=== PATIENT | female | born 1930 | race Caucasian/White ===

== ENCOUNTER 2017-10-17 13:07 | Observation (INO) | payer MEDICARE, OTHER ==
[~2017-10-17] VITALS: Ht 144.8 cm; Wt 40.8 kg
[2017-10-17 10:00] VITALS: BP 140/72
[~2017-10-17 13:07] MED LIST: ASPIRIN CHEW81 MG PO; ATIVAN1 MG PO; BISACODYL5 MG PO; CARBIDOPA-LEVO1 EACH PO; DOCUSATE SODIU100 MG PO; FUROSEMIDE40 MG PO; MULTI-VITAMIN1 EACH PO; NORCO 10-325 T1 EACH PO; NORCO 10MG-325MG1 EA PO; NORCO 5-325 TA1 EACH PO; PANTOPRAZOLE SO40 MG PO; SENNA LAXATIVE1 EACH PO; SERTRALINE HCL25 MG PO; TAMOXIFEN CITRA10 MG PO; ULTRAM 50MG50 MG PO; ULTRAM50 MG PO; WELLBUTRIN SR150 MG PO; ZOFRAN ODT4 MG
[2017-10-17 14:11] LABS: BASOPHILS % 0.4 % (0.0-1.0); EOSINOPHILS # (AUTO) 0.3 (0.0-0.4); HEMATOCRIT 37.4 % (34.2-44.1); HEMOGLOBIN 12.5 g/dL (12.0-16.0); LYMPHOCYTES # (AUTO) 2.6 (1.0-3.2); LYMPHOCYTES % 32.9 % (18.0-39.1); MEAN CORPUSCULAR HEMOGLOBIN 32.3 pg (28-32); MEAN CORPUSCULAR HGB CONC 33.4 g/dL (31-35); MEAN CORPUSCULAR VOLUME 96.6 fL (81-99); MONOCYTES # (AUTO) 0.7 (0.2-0.8); MONOCYTES % 8.6 % (4.4-11.3); NEUTROPHILS # (AUTO) 4.2 (2.1-6.9); NEUTROPHILS % 53.8 % (38.7-80.0); PLATELET COUNT 229 x10e3/uL (140-360); RED BLOOD COUNT 3.87 x10e6/uL (3.6-5.1); RED CELL DISTRIBUTION WIDTH 14.2 % (11.7-14.4)
[2017-10-17 14:25] LABS: ALANINE AMINOTRANSFERASE 12 IU/L (0-55); ALBUMIN 3.7 g/dL (3.5-5.0); ALKALINE PHOSPHATASE 68 IU/L (40-150); ANION GAP 13.2 mmol/L (8-16); BLOOD UREA NITROGEN 19 mg/dL (7-26); BUN/CREATININE RATIO 28 (6-25); CARBON DIOXIDE 27 mmol/L (22-29); CHLORIDE 104 mmol/L (98-107); CREATINE KINASE 38 IU/L (29-168); CREATININE, SERUM 0.69 mg/dL (0.57-1.11); EST GLOMERULAR FILTRATION RATE > 60 ML/MIN (60-); GLUCOSE 101 mg/dL (74-118); POTASSIUM 4.2 mmol/L (3.5-5.1); SODIUM 140 mmol/L (136-145)
--- NOTE | 2017-10-17 14:49 | Diagnostic Imaging Report ---
Exam: Head CT without contrast History: Altered mental status, weakness Comparison studies: Head CTs of 04/07/2016 12/22/2015. Technique: Axial images were obtained from the skull base to the vertex. Coronal and sagittal images reconstructed from the axial data. Intravenous contrast: None Findings: Scalp: No abnormalities. Bones: No fractures, blastic or lytic lesions. Brain sulci: Moderately prominent. Ventricles: Normal in size and configuration. No hydrocephalus. Extra-axial spaces: No masses, no fluid collection. Parenchyma: Mass, acute hemorrhage or acute cortical vascular insults. Hypodensities in the supratentorial white matter are nonspecific but most compatible with chronic small vessel ischemic changes. 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 Sellar/suprasellar region: No abnormalities. Craniocervical junction: Patent foramen magnum. No Chiari one malformation. Incidental findings: Atherosclerotic calcifications in the carotid siphons.. Degenerative changes at the temporal mandibular joints. Bilateral intraocular lens replacements related to previous cataract surgery. IMPRESSION: No acute intracranial abnormalities. No changes from the previous head CT of 03/28/2016. Chronic findings: 1. Moderate generalized volume loss. 2. Mild chronic microvascular ischemic changes. 3. 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 Signed by: Dr. Bob Vasquez M.D. on 10/17/2017 2:45 PM
--- NOTE | 2017-10-17 14:59 | Diagnostic Imaging Report ---
PROCEDURE: A single AP view of the chest. COMPARISON: Patients [facility], , CHEST SINGLE (PORTABLE), 03/28/2016, 16:25. INDICATIONS: WEAKNESS, AMS FINDINGS: Lines/tubes: None. Lungs: The lungs are well inflated and grossly clear. There is no evidence of pneumonia or pulmonary edema. Pleura: There is no pleural effusion or pneumothorax. Heart and mediastinum: The heart and the mediastinum are unremarkable. Atherosclerotic calcification of the thoracic aorta. Bones: No acute bony abnormality. Chronic fracture deformity of the right clavicle. Degenerative changes in the thoracic spine. IMPRESSION: 1. No acute cardiopulmonary disease. Shabbir Gage M.D. Dictated by: Shabbir Gage M.D. on 10/17/2017 at 15:02 Electronically approved by: Shabbir Gage M.D. on 10/17/2017 at 15:02
[2017-10-17 15:13] LABS: BILIRUBIN,URINE NEGATIVE (NEGATIVE); CLARITY,URINE CLOUDY (CLEAR); COLOR,URINE YELLOW (YELLOW); KETONES,URINE NEGATIVE (NEGATIVE); LEUKOCYTE ESTERASE ,URINE TRACE (NEGATIVE); NITRITE,URINE NEGATIVE (NEGATIVE); PROTEIN,URINE DIPSTICK NEGATIVE (NEGATIVE); URINE UROBILINOGEN 0.2 mg/dL (0.2 - 1)
[2017-10-17 15:27] LABS: BACTERIA,URINE RARE /HPF; EPITHELIAL CELLS,URINE FEW /LPF
[2017-10-17 16:03] LABS: AMPHETAMINES SCREEN,URINE NEGATIVE (NEGATIVE); BENZODIAZEPINES SCREEN,URINE NEGATIVE (NEGATIVE); PHENCYCLIDINE SCREEN,URINE NEGATIVE (NEGATIVE)
[2017-10-17] MEDS ORDERED: KETOROLAC TROMETHAMINE 30 MG/ML VIAL IV STA (16:27)
--- NOTE | 2017-10-17 17:57 | Diagnostic Imaging Report ---
PROCEDURE: CT ABDOMEN AND PELVIS WITH CONTRAST TECHNIQUE: The abdomen and pelvis were scanned utilizing a multidetector helical scanner from the diaphragm to the lesser trochanter after the IV administration of 100 cc of Isovue 370 and the oral administration of water. Coronal and sagittal multiplanar reformations were obtained. COMPARISON: None. INDICATIONS: BACK PAIN, possible sepsis FINDINGS: LOWER THORAX: Linear opacities in bilateral lower lobes, likely represent subsegmental atelectasis or scarring. HEPATOBILIARY: No focal hepatic lesions. No biliary ductal dilatation. Gallbladder is unremarkable. SPLEEN: No splenomegaly. PANCREAS: No focal masses or ductal dilatation. ADRENALS: No adrenal nodules. KIDNEYS/URETERS: No hydronephrosis, stones, or solid mass lesions. PELVIC ORGANS/BLADDER: The evaluation of the pelvis is limited by beam hardening artifact from right hip prosthesis. Visualized portions of the bladder and uterus are unremarkable. No focal lesions. No adnexal masses. PERITONEUM / RETROPERITONEUM: No free air or fluid. LYMPH NODES: No lymphadenopathy. VESSELS: Celiac trunk, superior and inferior mesenteric, and bilateral renal arteries are patent. Portal, superior mesenteric, and splenic veins are patent. Atherosclerotic calcification of the distal abdominal aorta. Aorta is not aneurysmal. GI TRACT: No bowel dilation or evidence of obstruction. Moderate amount of retained stool in the colon, predominantly in the distal transverse, descending, and sigmoid. No wall thickening. BONES AND SOFT TISSUES: Moderate generalized osteopenia. No aggressive lytic lesions. Chronic compression fractures of the L1, L2, and L3, with vertebroplasty changes at L2 and L3. Anterior wedging of the T11 vertebral body. Old healed fracture of the left inferior and superior pubic rami. Right total hip replacement, with intact hardware in satisfactory position. IMPRESSION: 1. no acute abdominopelvic abnormalities. No bowel dilation or evidence of obstruction. 2. Moderate amount of retained stool in the colon, predominantly in the distal transverse, descending, and sigmoid colon, which may reflect constipation. 3. Bilateral lower lobe subsegmental atelectasis or scarring. 4. Chronic compression fractures of the L1, L2, and L3 vertebral bodies, with vertebroplasty changes at L2 and L3. Anterior wedging of the T11 vertebral body, consistent with an age-indeterminate compression deformity. Shabbir Gage M.D. Dictated by: Shabbir Gage M.D. on 10/17/2017 at 17:59 Electronically approved by: Shabbir Gage M.D. on 10/17/2017 at 17:59
[2017-10-17] MEDS ORDERED: SODIUM CHLORIDE 0.9% 1000ML 1,000 ML IV SCH (19:39)
[2017-10-17] MEDS ORDERED: ONDANSETRON HCL INJ 2 MG/ML VIAL IV PRN (19:45)
[2017-10-17] MEDS ORDERED: ONDANSETRON HCL 4 MG ORAL DISINTEGRATING TAB PO PRN (20:00)
--- OUTSIDE RECORDS SUMMARY | 2017-10-17 20:08 | XMS REPORT ---
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 Allergies, Adverse Reactions, Alerts This patient has no known allergies or adverse reactions. Medications This patient has no known medications. Results Test Description Test Time Test Comments Text Results Atomic Results Result Comments CT ABDOMEN/PELVIS W [place] [address] Patient Name: JAYY LAYNE MR #: [id number] : 1930 Age/Sex: 87/F Req #: [id number] Adm Physician: Ordered by: JOAN VICTOR MD Report #: [id number] Location: ER Room/Bed: Procedure: [id number] CT/CT ABDOMEN/PELVIS W Exam Date: 10/17/17 Exam Time: 1710 REPORT STATUS: Signed PROCEDURE: CT ABDOMEN AND PELVIS WITH CONTRAST TECHNIQUE: The abdomen and pelvis were scanned utilizing a multidetector helical scanner from the diaphragm to the lesser trochanter after the IV administration of 100 cc of Isovue 370 and the oral administration of water. Coronal and sagittal multiplanar reformations were obtained. COMPARISON: None. INDICATIONS: BACK PAIN, possible sepsis FINDINGS: LOWER THORAX: Linear opacities in bilateral lower lobes, likely represent subsegmental atelectasis or scarring. HEPATOBILIARY: No focal hepatic lesions. No biliary ductal dilatation. Gallbladder is unremarkable. SPLEEN: No splenomegaly. PANCREAS: No focal masses or ductal dilatation. ADRENALS: No adrenal nodules. KIDNEYS/URETERS: No hydronephrosis, stones, or solid mass lesions. PELVIC ORGANS/BLADDER: The evaluation of the pelvis is limited by beam hardening artifact from right hip prosthesis. Visualized portions of the bladder and uterus are unremarkable. No focal lesions. No adnexal masses. PERITONEUM / RETROPERITONEUM: No free air or fluid. LYMPH NODES: No lymphadenopathy. VESSELS: Celiac trunk, superior and inferior mesenteric, and bilateral renal arteries are patent. Portal, superior mesenteric, and splenic veins are patent. Atherosclerotic calcification of the distal abdominal aorta. Aorta is not aneurysmal. GI TRACT: No bowel dilation or evidence of obstruction. Moderate amount of retained stool in the colon, predominantly in the distal transverse, descending, and sigmoid. No wall thickening. BONES AND SOFT TISSUES: Moderate generalized osteopenia. No aggressive lytic lesions. Chronic compression fractures of the L1, L2, and L3 , with vertebroplasty changes at L2 and L3. Anterior wedging of the T11 vertebral body. Old healed fracture of the left inferior and superior pubic rami. Right total hip replacement, with intact hardware in satisfactory position. IMPRESSION: 1. no acute abdominopelvic abnormalities. No bowel dilation or evidence of obstruction. 2. Moderate amount of retained stool in the colon, predominantly in the distal transverse, descending, and sigmoid colon, which may reflect constipation. 3. Bilateral lower lobe subsegmental atelectasis or scarring. 4. Chronic compression fractures of the L1, L2, and L3 vertebral bodies, with vertebroplasty changes at L2 and L3. Anterior wedging of the T11 vertebral body, consistent with an age- indeterminate compression deformity. Franklin Gage M.D. Dictated by: Franklin Gage M.D. on 10/17/2017 at 17:59 Electronically approved by: Franklin Gage M.D. on 10/17/2017 at 17:59 Dictated By: FRANKLIN GAGE MD 58 Transcribed By: BRUNA on 10/17/171758 COPY TO: JOAN VICTOR [place] [place] [address] Patient Name: JAYY LAYNE MR #: [id number] : 1930 Age/Sex: 87/F Req # : [id number] Adm Physician: Ordered by: JOAN VICTOR MD Report #: [id number] Location: ER Room/Bed: Procedure: [id number] CT/CT BRAIN WO Exam Date: 10/17/17 Exam Time: 1400 REPORT STATUS: Signed Exam: Head CT without contrast History: Altered mental status, weakness Comparison studies: Head CTs of 04/07/201612/22/2015. Technique: Axial images were obtained from the skull base to the vertex. Coronal and sagittal images reconstructed from the axial data. Intravenous contrast: None Findings: Scalp: No abnormalities. Bones : No fractures, blastic or lytic lesions. Brain sulci: Moderately prominent. Ventricles: Normal in size and configuration. No hydrocephalus. Extra-axial spaces: No masses, no fluid collection. Parenchyma: Mass, acute hemorrhage or acute cortical vascular insults. Hypodensities in the supratentorial white matter are nonspecific but most compatible with chronic small vessel ischemic changes. 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 Sellar/suprasellar region: No abnormalities. Craniocervical junction: Patent foramen magnum. No Chiari one malformation. Incidental findings: Atherosclerotic calcifications in the carotid siphons.. Degenerative changes at the temporal mandibular joints. Bilateral intraocular lens replacements related to previous cataract surgery. IMPRESSION: No acute intracranial abnormalities. No changes from the previous head CT of 2015. Chronic findings: 1. Moderate generalized volume loss. 2. Mild chronic microvascular ischemic changes. 3. 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 Signed by: Dr. Amy Vasquez M.D. on 10/17/2017 2:45 PM Dictated By: AMY VASQUEZ MD 144 Transcribed By: VALENTINE on 10/17 1442 COPY TO: JOAN VICTOR MD CHEST SINGLE (PORTABLE) [place] [address] Patient Name: JAYY LAYNE MR #: [id number] : 1930 Age/Sex: 87/F Req #: [id number] Adm Physician: Ordered by: JOAN VICTOR MD Report #: [id number] Location: ER Room/Bed: Procedure: [id number] DX/CHEST SINGLE (PORTABLE) Exam Date: 10/17/17 Exam Time: 1400 REPORT STATUS: Signed PROCEDURE: A single AP view of the chest. COMPARISON: [facility], DX, CHEST SINGLE (PORTABLE), 03/28/2016, 16:25. INDICATIONS: WEAKNESS, AMS FINDINGS: Lines/tubes: None. Lungs: The lungs are well inflated and grossly clear. There is no evidence of pneumonia or pulmonary edema. Pleura: There is no pleural effusion or pneumothorax. Heart and mediastinum: The heart and the mediastinum are unremarkable. Atherosclerotic calcification of the thoracic aorta. Bones: No acute bony abnormality. Chronic fracture deformity of the right clavicle. Degenerative changes in the thoracic spine. IMPRESSION: 1. No acute cardiopulmonary disease. Franklin Gage M.D. Dictated by : Franklin Gage M.D. on 10/17/2017 at 15:02 Electronically approved by: Franklin Gage M.D. on 10/17/2017 at 15:02 Dictated By : FRANKLIN GAGE MD 1502 Transcribed By: BRUNA on 10/17/17 1502 COPY TO: JOAN VICTOR MD
[2017-10-17] MEDS: CEFTRIAXONE SOD 1 GM VIAL IV SCH (20:09)
[2017-10-17] MEDS ORDERED: IOPAMIDOL 370 MG/ML 200 ML INFUS..BTL INJ ONE (20:40)
[2017-10-17] MEDS ORDERED: SODIUM CHLORIDE 0.9% 50ML 50 ML ONE (20:40)
[2017-10-17] MEDS ORDERED: GABAPENTIN300 MG PO (22:58)
[2017-10-17] MEDS ORDERED: METOPROLOL TART25 MG PO (22:59)
[2017-10-17] MEDS ORDERED: LASIX20 MG PO (23:00)
[2017-10-17] MEDS ORDERED: ONDANSETRON HCL 4 MG ORAL DISINTEGRATING TAB SL PRN (23:15)
[2017-10-17] MEDS ORDERED: HYDROCODONE/APAP 10MG-325MG TAB PO PRN (23:15)
[2017-10-17] MEDS ORDERED: LORAZEPAM 1 MG TAB PO PRN (23:15)
[2017-10-18 01:06] VITALS: BP 145/80
[2017-10-18 05:38] VITALS: BP 129/92
[2017-10-18 08:00] VITALS: BP 154/87
[2017-10-18] MEDS: CEFTRIAXONE SOD 1 GM VIAL IV SCH (08:00)
[2017-10-18] MEDS ORDERED: METOPROLOL TARTRATE 25 MG TAB PO SCH (09:00)
[2017-10-18] MEDS ORDERED: SERTRALINE HCL 50 MG TAB PO SCH (09:00)
[2017-10-18] MEDS ORDERED: GABAPENTIN 300 MG CAP PO SCH (09:00)
[2017-10-18] MEDS ORDERED: FUROSEMIDE 20 MG TAB PO SCH (11:00)
[2017-10-18 12:00] VITALS: BP 149/71
== END 2017-10-18 16:54 | disposition home or self-care (01) ==
LOC: ER 13:07 → ERHOLD 19:39 → MED/SURG2 23:06
PROVIDERS: ADMIT Internal Medicine; ATTEND Internal Medicine
DX: N39.0 Urinary tract infection, site not specified (principal); R44.3 Hallucinations, unspecified; Z86.73 Personal history of transient ischemic attack (TIA), and cerebral infarction without residual deficits; K59.00 Constipation, unspecified; I48.0 Paroxysmal atrial fibrillation
CPT/HCPCS: 36415; 70450; 71045; 74177; 80053; 80307; 81001; 82550; 82553; 83605; 84484; 85025; 87086; 93005; 99284; G0378 ×2; J0696 ×2; J1885; J7030 ×2; Q9967

== ENCOUNTER 2018-03-12 17:58 | Emergency (ER) | payer MEDICARE ==
[~2018-03-12] VITALS: Ht 144.8 cm; Wt 40.8 kg
[~2018-03-12 17:58] MED LIST changes: +GABAPENTIN300 MG PO; +LASIX20 MG PO; +METOPROLOL TART25 MG PO
[2018-03-12] MEDS ORDERED: SODIUM CHLORIDE 0.9% 1000ML 1,000 ML IV STA (19:04)
[2018-03-12 19:13] LABS: BASOPHILS % 0.2 % (0.0-1.0); EOSINOPHILS # (AUTO) 0.1 (0.0-0.4); EOSINOPHILS % 1.2 % (0.0-6.0); HEMATOCRIT 38.3 % (34.2-44.1); HEMOGLOBIN 12.8 g/dL (12.0-16.0); LYMPHOCYTES # (AUTO) 3.3 (1.0-3.2); MEAN CORPUSCULAR HEMOGLOBIN 32.5 pg (28-32); MEAN CORPUSCULAR HGB CONC 33.4 g/dL (31-35); MEAN CORPUSCULAR VOLUME 97.2 fL (81-99); MONOCYTES # (AUTO) 0.7 (0.2-0.8); MONOCYTES % 6.7 % (4.4-11.3); NEUTROPHILS # (AUTO) 5.9 (2.1-6.9); NEUTROPHILS % 58.7 % (38.7-80.0); PLATELET COUNT 200 x10e3/uL (140-360); RED BLOOD COUNT 3.94 x10e6/uL (3.6-5.1); RED CELL DISTRIBUTION WIDTH 13.6 % (11.7-14.4)
[2018-03-12 19:24] LABS: INR 0.89; PROTHROMBIN TIME 12.9 seconds (11.9-14.5)
[2018-03-12 19:25] LABS: PARTIAL THROMBOPLASTIN TIME 27.1 seconds (23.8-35.5)
[2018-03-12 19:32] LABS: ALANINE AMINOTRANSFERASE 11 IU/L (0-55); ALBUMIN 3.6 g/dL (3.5-5.0); ALKALINE PHOSPHATASE 67 IU/L (40-150); AMYLASE 49 U/L (25-125); ANION GAP 19.4 mmol/L (8-16); BLOOD UREA NITROGEN 18 mg/dL (7-26); BUN/CREATININE RATIO 22 (6-25); CARBON DIOXIDE 23 mmol/L (22-29); CHLORIDE 100 mmol/L (98-107); CREATINE KINASE 34 IU/L (29-168); CREATININE, SERUM 0.83 mg/dL (0.57-1.11); EST GLOMERULAR FILTRATION RATE > 60 ML/MIN (60-); GLUCOSE 98 mg/dL (74-118); LIPASE 5 U/L (8-78); POTASSIUM 4.4 mmol/L (3.5-5.1); SODIUM 138 mmol/L (136-145)
--- NOTE | 2018-03-12 20:40 | Diagnostic Imaging Report ---
EXAMINATION: CHEST SINGLE (PORTABLE) INDICATION: Congestion. COMPARISON: 01/24/2016. FINDINGS: TUBES and LINES: None. LUNGS: Bilateral chronic interstitial changes with bronchiectasis, particularly on the left. Mild bilateral perihilar Thickening. There is no evidence of pneumonia or pulmonary edema. PLEURA: No pleural effusion or pneumothorax. HEART AND MEDIASTINUM: The cardiomediastinal silhouette is unremarkable. BONES AND SOFT TISSUES: No acute osseous lesion. Surgical clips again projected on the left lower quadrant laterally. Remote displaced fracture of the right clavicle. UPPER ABDOMEN: No free air under the diaphragm. IMPRESSION: Mild bilateral perihilar, peribronchial thickening may reflect a very infection versus reactive airway disease. No focal consolidation. Signed by: Dr. Wil Thacker M.D. on 03/12/2018 8:37 PM
--- NOTE | 2018-03-12 20:50 | Diagnostic Imaging Report ---
EXAM: CT Abdomen and Pelvis WITH contrast INDICATION: Bilateral lower quadrant abdominal pain. COMPARISON: None. TECHNIQUE: Abdomen and pelvis were scanned utilizing a multidetector helical scanner from the lung base to the pubic symphysis after administration of IV contrast. Coronal and sagittal reformations were obtained. Routine protocol was performed. Scan was performed when during portal venous phase. IV CONTRAST: 150 mL of Omnipaque 300 ORAL CONTRAST: Water RADIATION DOSE: Total DLP: ... mGy*cm Estimated effective dose: (DLP x 0.015 x size factor) mSv COMPLICATIONS: None FINDINGS: LINES and TUBES: None. LOWER THORAX: Anterior left lower lobe pleural parenchymal scarring, possibly post radiation change. HEPATOBILIARY: No focal hepatic lesions. No biliary ductal dilation. GALLBLADDER: No radio-opaque stones or sludge. No wall thickening. SPLEEN: No splenomegaly. PANCREAS: Diffusely atrophic. No focal masses or ductal dilatation. ADRENALS: No adrenal nodules KIDNEYS/URETERS: Kidneys enhance symmetrically. No hydronephrosis. No cystic or solid mass lesions. No stones. GI TRACT: No abnormal distention, wall thickening, or evidence of bowel obstruction. Fluid attenuation throughout the ascending colon is nonspecific. Appendix is normal. PELVIC ORGANS/BLADDER: Unremarkable. LYMPH NODES: No lymphadenopathy. VESSELS: There is moderate atherosclerotic disease in the aorta and major arterial branches. Tortuous aorta. PERITONEUM / RETROPERITONEUM: No free air or fluid. BONES: Right hip prosthesis. Remote left inferior pubic ramus fracture. Compression fractures of L2 and L3 status post kyphoplasty. Compression fracture of L1 and T11. Generalized osteopenia. Degenerative disc disease at L5-S1. SOFT TISSUES: Unremarkable. IMPRESSION: 1. No acute abdominal pelvic abnormality. Unremarkable appendix. Signed by: Dr. Wil Thacker M.D. on 03/12/2018 8:47 PM
[2018-03-12 22:12] LABS: COLOR,URINE YELLOW (YELLOW)
[2018-03-12 22:13] LABS: BILIRUBIN,URINE NEGATIVE (NEGATIVE); CLARITY,URINE HAZY (CLEAR); KETONES,URINE TRACE (NEGATIVE); LEUKOCYTE ESTERASE ,URINE 1+ (NEGATIVE); NITRITE,URINE NEGATIVE (NEGATIVE); PROTEIN,URINE DIPSTICK NEGATIVE (NEGATIVE); URINE UROBILINOGEN 0.2 mg/dL (0.2 - 1)
--- NOTE | 2018-03-12 22:13 | Diagnostic Imaging Report ---
EXAMINATION: Head CT without contrast. HISTORY:Altered mental status, hallucination. COMPARISON:CT brain from 10/17/2017. TECHNIQUE: Multidetector axial images were obtained from the foramen magnum to the vertex without contrast. The images were reconstructed using brain and bone algorithms. Thin section brain images were reformatted into coronal and sagittal planes. Dose modulation, iterative reconstruction, and/or weight based adjustment of the mA/kV was utilized to reduce the radiation dose to as low as reasonably achievable. Intravenous contrast: None IMAGE QUALITY: Acceptable. FINDINGS: Skull/scalp: No lytic or blastic. lesions. No surgical changes. Parenchyma: Nonspecific supratentorial white matter patchy hypodensity are likely related to small vessel ischemic changes. Unchanged subtle increased density in the right lentiform nucleus with mildly prominent vessels possibly represents developmental venous anomaly with or without associated cavernoma. No acute hemorrhage, mass or acute major vascular territorial infarct Arteries: Mild atherosclerotic calcification in bilateral carotid siphon. Dural sinuses: No abnormal density suggestive of thrombosis. Ventricles: Moderate compensated dilatation due to volume loss. Extra-axial spaces: No abnormal density. Brain volume: Generalized age-related cerebral volume loss. Craniocervical junction: No mass, Chiari malformation, or basilar invagination. Sella: No mass. Paranasal/mastoid sinuses: Imaged portions unremarkable. IMPRESSION: No acute intracranial abnormality. No change since CT brain from 10/17/2017. Chronic findings: 1. Generalized age-related cerebral volume loss. 2. Mild supratentorial white matter microvascular ischemic changes. 3. 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 Signed by: Dr. Jacy Escalera M.D. on 03/12/2018 10:09 PM
[2018-03-12 22:20] LABS: BACTERIA,URINE FEW /HPF; EPITHELIAL CELLS,URINE FEW /LPF
[2018-03-12] MEDS ORDERED: CEFTRIAXONE SOD 1 GM VIAL IV ONE ×2 (22:45→23:45)
[2018-03-13 00:19] VITALS: BP 131/80
[2018-03-13] MEDS ORDERED: SODIUM CHLORIDE 0.9% 50ML 50 ML ONE (07:16)
[2018-03-13] MEDS ORDERED: IOPAMIDOL 370 MG/ML 200 ML INFUS..BTL INJ ONE (07:16)
== END 2018-03-13 01:08 | disposition home or self-care (01) ==
LOC: ER 17:58
DX: R41.0 Disorientation, unspecified (principal); N39.0 Urinary tract infection, site not specified; N30.91 Cystitis, unspecified with hematuria; J20.9 Acute bronchitis, unspecified; R26.2 Difficulty in walking, not elsewhere classified; J44.9 Chronic obstructive pulmonary disease, unspecified; F32.9 Major depressive disorder, single episode, unspecified; Z85.3 Personal history of malignant neoplasm of breast; Z95.5 Presence of coronary angioplasty implant and graft; Z87.891 Personal history of nicotine dependence
CPT/HCPCS: 36415; 70450; 71045; 74177; 80053; 81001; 82150; 82550; 82553; 83605; 83690; 84484; 85025; 85610; 85730; 87040; 87086; 87400; 93005; 99284; J0696; J7030; Q9967

== ENCOUNTER 2018-08-24 19:07 | Inpatient (IN) | payer MEDICARE ==
[~2018-08-24] VITALS: Ht 142.2 cm; Wt 49.4 kg
[2018-08-24] MEDS ORDERED: CEFTRIAXONE SOD 1 GM/NS 50 ML 50 ML IV ONE (19:45)
[2018-08-24] MEDS ORDERED: SODIUM CHLORIDE 0.9% 1000ML 1,000 ML IV ONE (19:45)
[2018-08-24] MEDS ORDERED: ACETAMINOPHEN 1000 MG/100 ML IV ONE (19:45)
[2018-08-24 20:52] LABS: INFLUENZAE A&B ANTIGEN (RAPID) NEGATIVE (NEGATIVE)
[2018-08-24 20:59] LABS: BASOPHILS % 0.2 % (0.0-1.0); EOSINOPHILS # (AUTO) 0.1 (0.0-0.4); HEMATOCRIT 33.4 % (34.2-44.1); HEMOGLOBIN 11.2 g/dL (12.0-16.0); LYMPHOCYTES % 39.5 % (18.0-39.1); MEAN CORPUSCULAR HEMOGLOBIN 33.3 pg (28-32); MEAN CORPUSCULAR HGB CONC 33.5 g/dL (31-35); MEAN CORPUSCULAR VOLUME 99.4 fL (81-99); MONOCYTES # (AUTO) 0.8 (0.2-0.8); MONOCYTES % 7.4 % (4.4-11.3); NEUTROPHILS # (AUTO) 5.3 (2.1-6.9); NEUTROPHILS % 51.7 % (38.7-80.0); PLATELET COUNT 182 x10e3/uL (140-360); RED BLOOD COUNT 3.36 x10e6/uL (3.6-5.1); RED CELL DISTRIBUTION WIDTH 13.7 % (11.7-14.4)
[2018-08-24 21:16] LABS: ALANINE AMINOTRANSFERASE 7 IU/L (0-55); ALBUMIN 2.9 g/dL (3.5-5.0); ALKALINE PHOSPHATASE 54 IU/L (40-150); ANION GAP 12.4 mmol/L (8-16); BLOOD UREA NITROGEN 11 mg/dL (7-26); BUN/CREATININE RATIO 17 (6-25); CALCIUM 8.5 mg/dL (8.4-10.2); CARBON DIOXIDE 22 mmol/L (22-29); CHLORIDE 105 mmol/L (98-107); CREATININE, SERUM 0.63 mg/dL (0.57-1.11); EST GLOMERULAR FILTRATION RATE > 60 ML/MIN (60-); GLUCOSE 113 mg/dL (74-118); POTASSIUM 3.4 mmol/L (3.5-5.1); SODIUM 136 mmol/L (136-145)
[2018-08-24 21:17] LABS: PLATELET ESTIMATE ADEQUATE; PLATELET MORPHOLOGY COMMENT NORMAL; RBC MORPHOLOGY COMMENT NORMAL
--- NOTE | 2018-08-24 21:17 | Diagnostic Imaging Report ---
EXAMINATION: CHEST SINGLE (PORTABLE) INDICATION: Fever. Lethargic. Cough. COMPARISON: 03/12/2018. FINDINGS: TUBES and LINES: None. LUNGS: Bilateral chronic interstitial changes with bronchiectasis, particularly on the left. Mild bilateral perihilar thickening. There is no evidence of pneumonia or pulmonary edema. PLEURA: No pleural effusion or pneumothorax. Blunting of the left lateral calcific sulcus is unchanged. HEART AND MEDIASTINUM: The cardiomediastinal silhouette is unremarkable. Mild prominence of the central pulmonary arteries bilaterally. Tortuous thoracic aorta. BONES AND SOFT TISSUES: No acute osseous lesion. Surgical clips again projected on the left lower quadrant laterally. Remote displaced fracture of the right clavicle. Status post lumbar kyphoplasty partially visualized. UPPER ABDOMEN: No free air under the diaphragm. IMPRESSION: Mild bilateral perihilar, peribronchial thickening may reflect a very infection versus reactive airway disease. No focal consolidation. Signed by: Dr. Wil Thacker M.D. on 08/24/2018 9:14 PM
[2018-08-24 22:08] LABS: CLARITY,URINE CLEAR (CLEAR); COLOR,URINE YELLOW (YELLOW)
[2018-08-24 22:09] LABS: BILIRUBIN,URINE NEGATIVE (NEGATIVE); KETONES,URINE 1+ (NEGATIVE); LEUKOCYTE ESTERASE ,URINE NEGATIVE (NEGATIVE); NITRITE,URINE NEGATIVE (NEGATIVE); PROTEIN,URINE DIPSTICK TRACE (NEGATIVE); URINE UROBILINOGEN 0.2 mg/dL (0.2 - 1)
[2018-08-24 22:28] LABS: BACTERIA,URINE MODERATE /HPF; EPITHELIAL CELLS,URINE MODERATE /LPF; MUCUS,URINE FEW (RARE); WBC,URINE (MAN) 0-5 /HPF (0-5)
[2018-08-24] MEDS ORDERED: CEFTRIAXONE SOD 1 GM VIAL IV SCH (22:45)
[2018-08-24] MEDS ORDERED: LORAZEPAM 1 MG TAB PO PRN (22:45)
[2018-08-24 22:59] LABS: STREPTOCOCCUS GRP A ANTIGEN POSITIVE (NEGATIVE)
[2018-08-24] MEDS: ALBUTEROL/IPRATROPIUM 3 ML NEB NEB SCH (23:00)
[2018-08-24] MEDS: AZITHROMYCIN 250 MG TAB PO SCH (23:21)
[2018-08-24] MEDS: SODIUM CHLORIDE 0.9% 1000ML 1,000 ML IV SCH (23:21)
--- NOTE | 2018-08-24 23:44 | NUR ---
PT ARRIVED ON THE UNIT VIA STRETCHER AT 2344. PT IS A&OX2. RESPIRATION IS EVEN AND UNLABORED, NO DISTRESS NOTED. PT ON 2L NC. BED IN THE LOWEST POSITION, LOCKED, AIR FLOW MATTERS INITIATED, AND CALL LIGHT WITHIN REACH. PT HAS A STAGE 2 ON HER SACRUM. ADMISSION AND HEAD TO TOE ASSESSMENT COMPLETE. WILL CONTINUE TO MONITOR. Addendum: 08/25/18 at 0238 by Katherine Franz RN STAGE 1 NOT 2 ON SACRUM
[2018-08-24] MEDS ORDERED: GABAPENTIN 300 MG CAP PO ONE (23:45)
[2018-08-25] VITALS (9 sets, daily range): BP systolic 89–142; BP diastolic 43–81
[2018-08-25] MEDS: SODIUM CHLORIDE 0.9% 1000ML 1,000 ML IV SCH (01:25)
[2018-08-25 02:15] LABS: CREATINE KINASE MB 0.3 ng/mL (0-5.0)
[2018-08-25] MEDS: ALBUTEROL/IPRATROPIUM 3 ML NEB NEB SCH ×2 (03:00→07:00)
[2018-08-25 06:30] LABS: CREATINE KINASE MB 0.2 ng/mL (0-5.0)
[2018-08-25 06:41] LABS: BASOPHILS % 0.3 % (0.0-1.0); EOSINOPHILS % 0.1 % (0.0-6.0); HEMATOCRIT 34.7 % (34.2-44.1); HEMOGLOBIN 11.5 g/dL (12.0-16.0); LYMPHOCYTES % 53.2 % (18.0-39.1); MEAN CORPUSCULAR HGB CONC 33.1 g/dL (31-35); MEAN CORPUSCULAR VOLUME 99.4 fL (81-99); MONOCYTES # (AUTO) 0.5 (0.2-0.8); MONOCYTES % 6.6 % (4.4-11.3); NEUTROPHILS % 39.7 % (38.7-80.0); PLATELET COUNT 163 x10e3/uL (140-360); RED BLOOD COUNT 3.49 x10e6/uL (3.6-5.1); RED CELL DISTRIBUTION WIDTH 13.9 % (11.7-14.4)
[2018-08-25 06:55] LABS: BAND NEUTROPHILS % (MANUAL) 11 %; LYMPHOCYTES % (MANUAL) 30 % (19-48); MONOCYTES % (MANUAL) 9 % (3.4-9.0); NEUTROPHILS % (MANUAL) 50 % (40-74)
[2018-08-25 06:56] LABS: PLATELET ESTIMATE SLIGHTLY DECREASED; PLATELET MORPHOLOGY COMMENT NORMAL; RBC MORPHOLOGY COMMENT NORMAL
[2018-08-25 06:59] LABS: ANION GAP 9.7 mmol/L (8-16); BLOOD UREA NITROGEN 11 mg/dL (7-26); BUN/CREATININE RATIO 17 (6-25); CALCIUM 8.7 mg/dL (8.4-10.2); CARBON DIOXIDE 25 mmol/L (22-29); CHLORIDE 106 mmol/L (98-107); CREATININE, SERUM 0.66 mg/dL (0.57-1.11); EST GLOMERULAR FILTRATION RATE > 60 ML/MIN (60-); GLUCOSE 104 mg/dL (74-118); POTASSIUM 3.7 mmol/L (3.5-5.1); SODIUM 137 mmol/L (136-145)
--- NOTE | 2018-08-25 07:19 | NUR ---
PATIENT IN BED RESTING WITH HEAD OF BED ELEVATED, NO RESPIRATORY DISTRESS OBSERVED. LIMB ALERT IN PLACE TO LEFT ARM. IV FLUID INFUSING ORDERED. BED IN LOWER POSITION, CALL LIGHT AT REACH.
[2018-08-25] MEDS ORDERED: SERTRALINE HCL 50 MG PO SCH ×2 (09:00)
[2018-08-25] MEDS: GABAPENTIN 300 MG CAP PO SCH ×2 (09:38→17:25)
[2018-08-25] MEDS: METOPROLOL TARTRATE 25 MG TAB PO SCH ×2 (09:38→17:25)
[2018-08-25] MEDS: FUROSEMIDE 20 MG TAB PO SCH (09:39)
--- NOTE | 2018-08-25 11:33 | NUR ---
PATIENT ASSISTED WITH DIAPER CHANGE. REPOSITIONED IN BED. FAMILY AT BED SIDE, CALL LIGHT AT REACH.
--- NOTE | 2018-08-25 12:24 | NUR ---
SOCIAL WORK INITIAL ASSESSMENT Wall Taper to bedside to discuss plan of care with patient/family. CM/SW role and care transitions discussed. Anticipated discharge plan discussed along with duration of care. CM/SW discussed patients right to make decisions in care. CM/SW work hours given. Patient lives: WITH FAMILY (POSSIBLE RECENT SNF) THIS IS INFORMATION FROM PT AND NOT ABLE TO RECALL Admit/Transfer: VIA ED FROM HOME POA/Emergency contact: DAUGHTER TONI [phone] SON N LAW AYSHA [phone] POA DA JAZMYN [phone] Current/Previous Home Health: NO PCP/Follow-up Care: CAROL/EDDY Current/Previous DME: ROSEANN Other Services: NA Employment Status: RETIRED Areas of Concerns: NA Referral Needs: NA Education Needs: NA IMM/VIEYRA given and signed (if applicable): Goal for discharge: RETURN HOME CM/SW left business card at the bedside with contact information. Name and number was also written on the patients whiteboard. Patient verbalized understanding of discussion. CM will follow-up with ongoing discharge and transition of care needs.
[2018-08-25] MEDS: IPRATROPIUM BROMIDE 0.02% 2.5 ML NEB NEB SCH ×2 (14:00→19:20)
--- NOTE | 2018-08-25 14:14 | Diagnostic Imaging Report ---
EXAMINATION: CHEST SINGLE (PORTABLE) INDICATION: Bronchitis. Superior exacerbation. COMPARISON: . FINDINGS: TUBES and LINES: None. LUNGS: Bilateral chronic interstitial changes with bronchiectasis, particularly on the left. Mild bilateral perihilar thickening. There is no evidence of pneumonia or pulmonary edema. PLEURA: No pleural effusion or pneumothorax. Blunting of the bilateral costophrenic is unchanged. HEART AND MEDIASTINUM: The cardiomediastinal silhouette is unremarkable. Mild prominence of the central pulmonary arteries bilaterally. Tortuous thoracic aorta. BONES AND SOFT TISSUES: No acute osseous lesion. Surgical clips again projected on the left lower quadrant laterally. Remote displaced fracture of the right clavicle. Status post lumbar kyphoplasty partially visualized. UPPER ABDOMEN: No free air under the diaphragm. IMPRESSION: No interval change. Signed by: Dr. Wil Thacker M.D. on 08/25/2018 2:11 PM
[2018-08-25] MEDS: ACETAMINOPHEN 325 MG TAB PO PRN (15:46)
--- NOTE | 2018-08-25 15:47 | NUR ---
PATIENT IN ROOM EXERCISING WITH PHYSICAL THERAPY, NO COMPLAIN VOICED. WILL CLOSELY MONITOR.
[2018-08-25] MEDS: LACTOBACILLUS ACIDOPHILUS CAPSULE PO SCH (17:25)
--- NOTE | 2018-08-25 18:04 | NUR ---
PATIENT NOTED WITH TEMP OF 101.6, TYLENOL GIVEN. TEMP RECHECKED WITH THE READING OF 99.2. WILL CONTINUE TO MONITOR.
[2018-08-25] MEDS ORDERED: CEFTRIAXONE SOD 1 GM VIAL IV SCH (20:00)
[2018-08-25] MEDS: HEPARIN SOD (PORCINE) 5,000 UNIT/ML VIAL SC SCH (21:30)
[2018-08-25] MEDS: SERTRALINE HCL 50 MG TAB PO SCH (21:30)
[2018-08-25] MEDS: AZITHROMYCIN 250 MG TAB PO SCH (22:45)
[2018-08-26] VITALS (8 sets, daily range): BP systolic 104–144; BP diastolic 54–63
[2018-08-26] MEDS ORDERED: ALBUTEROL/IPRATROPIUM 3 ML NEB ONE (04:31)
[2018-08-26] MEDS: ALBUTEROL/IPRATROPIUM 3 ML NEB NEB PRN ×2 (04:40→07:58)
[2018-08-26] MEDS: SODIUM CHLORIDE 0.9% 1000ML 1,000 ML IV SCH (05:14)
--- NOTE | 2018-08-26 05:38 | NUR ---
Patient noted with audible wheezing, MD notified, RT notified, new orders noted.
[2018-08-26 06:54] LABS: BASOPHILS % 0.2 % (0.0-1.0); EOSINOPHILS % 0.4 % (0.0-6.0); HEMATOCRIT 32.9 % (34.2-44.1); HEMOGLOBIN 10.5 g/dL (12.0-16.0); LYMPHOCYTES # (AUTO) 4.4 (1.0-3.2); LYMPHOCYTES % 51.5 % (18.0-39.1); MEAN CORPUSCULAR HEMOGLOBIN 32.3 pg (28-32); MEAN CORPUSCULAR HGB CONC 31.9 g/dL (31-35); MEAN CORPUSCULAR VOLUME 101.2 fL (81-99); MONOCYTES # (AUTO) 0.4 (0.2-0.8); MONOCYTES % 4.2 % (4.4-11.3); NEUTROPHILS # (AUTO) 3.7 (2.1-6.9); NEUTROPHILS % 43.3 % (38.7-80.0); PLATELET COUNT 167 x10e3/uL (140-360); RED BLOOD COUNT 3.25 x10e6/uL (3.6-5.1)
[2018-08-26] MEDS: IPRATROPIUM BROMIDE 0.02% 2.5 ML NEB NEB SCH ×4 (07:00→20:25)
--- NOTE | 2018-08-26 07:15 | NUR ---
PATIENT IN BED RESTING WITH HEAD OF BED ELEVATED, NO RESPIRATORY DISTRESS OBSERVED. HIGH FLOW O2 IN PLACE. DENIED PAIN. BED IN LOWER POSITION, CALL LIGHT AT REACH. FAMILY AT BED SIDE.
[2018-08-26 08:17] LABS: ANION GAP 11.2 mmol/L (8-16); BLOOD UREA NITROGEN 10 mg/dL (7-26); BUN/CREATININE RATIO 16 (6-25); CALCIUM 8.2 mg/dL (8.4-10.2); CARBON DIOXIDE 20 mmol/L (22-29); CHLORIDE 109 mmol/L (98-107); CREATININE, SERUM 0.61 mg/dL (0.57-1.11); EST GLOMERULAR FILTRATION RATE > 60 ML/MIN (60-); GLUCOSE 97 mg/dL (74-118); POTASSIUM 3.2 mmol/L (3.5-5.1); SODIUM 137 mmol/L (136-145)
[2018-08-26] MEDS: METOPROLOL TARTRATE 25 MG TAB PO SCH ×2 (09:22→17:44)
[2018-08-26] MEDS: SERTRALINE HCL 50 MG TAB PO SCH (09:22)
[2018-08-26] MEDS: GABAPENTIN 300 MG CAP PO SCH ×2 (09:22→17:44)
[2018-08-26] MEDS: FUROSEMIDE 20 MG TAB PO SCH (09:22)
[2018-08-26] MEDS: LACTOBACILLUS ACIDOPHILUS CAPSULE PO SCH ×2 (09:22→17:44)
[2018-08-26] MEDS: HEPARIN SOD (PORCINE) 5,000 UNIT/ML VIAL SC SCH ×2 (09:25→21:18)
--- NOTE | 2018-08-26 10:48 | NUR ---
Met with patient and explained to her that she has been changed to inpatient status and will be here a few more days. Notified her daughter by phone, Milli Herrmann [phone] of IMM letter. Explained to her and pt the letter. Telephone consent given. Copy placed in Transition of Care folder at bedside. Original placed in pt chart.
[2018-08-26] MEDS ORDERED: POTASSIUM CHLORIDE 20 MEQ TAB CR PO NR ×2 (12:30→14:15)
[2018-08-26] MEDS ORDERED: IPRATROPIUM BROMIDE 0.02% 2.5 ML NEB NEB PRN (12:45)
--- NOTE | 2018-08-26 13:00 | NUR ---
SPOKE WITH MD REGARDING ABNORMAL LAB RESULT. NEW ORDER RECEIVED.
[2018-08-26] MEDS ORDERED: CEFTAZIDIME 1 GM VIAL IV SCH (14:00)
[2018-08-26] MEDS ORDERED: CEFTAZIDIME SOD 1 GM/NS 50ML 50 ML IV SCH (14:00)
[2018-08-26] MEDS: CEFTAZIDIME SOD 1 GM/NS 50ML 50 ML IV SCH (14:19)
--- NOTE | 2018-08-26 16:14 | NUR ---
PATIENT OFF UNIT TO RADIOLOGY.
--- NOTE | 2018-08-26 16:46 | NUR ---
PATIENT BACK TO UNIT FROM RADIOLOGY.
--- NOTE | 2018-08-26 17:02 | Diagnostic Imaging Report ---
CT CHEST WITHOUT CONTRAST HISTORY: BRONCHIECTASIS, bronchitis, COPD, R/O PNA COMPARISON: Bone windows from CT of the abdomen and pelvis October 17, 2017. TECHNIQUE: CT scan of the chest WITHOUT intravenous contrast, using standard protocol. The chest was scanned utilizing a multidetector helical scanner from the apex to the level of the adrenal glands. Coronal and sagittal reformats are provided. IV CONTRAST: None, which limits evaluation of the vascular structures, mediastinum and soft tissues. RADIATION DOSE: Total DLP: 356.59 mGy*cm Dose modulation, iterative reconstruction, and/or weight based adjustment of the mA/kV was utilized to reduce the radiation dose to as low as reasonably achievable. COMPLICATIONS: None FINDINGS: Lines/tubes: None. Lungs and Airways: Mild biapical pleural-parenchymal scarring, right greater than left. Thickening of the bronchial mansfield. Right greater than left atelectasis. Small area of right lower lobe medial airspace consolidation. Pleura: Small bilateral low-density pleural effusions. Heart and mediastinum: The thyroid gland is normal. Trace pericardial fluid. Moderate sliding hiatal hernia, containing the proximal stomach. Abdomen: Limited nonenhanced views of the upper abdomen. Lymph nodes: No pathologically enlarged nodes, subcentimeter mediastinal nodes and right axillary nodes, likely reactive secondary to evolving infectious or inflammatory process. Vessels: Scattered atherosclerotic vascular calcifications. Bones: Diffusely decreased mineralization of the osseous structures limits bone detail. Multilevel age-indeterminate compression fracture deformities of multiple mid to lower thoracic vertebral bodies and L1, those also visualized on the comparison CT of the abdomen appear stable. Soft tissues: Otherwise, unremarkable. IMPRESSION: 1. Findings compatible with a nonspecific bronchitis. 2. Right greater than left atelectasis with a small area of right lower lobe consolidation which may reflect superimposed pneumonia. 3. Moderate sliding hiatal hernia. 4. Osseous demineralization and multilevel age-indeterminate compression fracture deformities; however, those seen on the comparison CT of the abdomen are stable. Signed by: Dr. Prasanth Person D.O., M.M.M. on 08/26/2018 4:58 PM
[2018-08-26 19:18] LABS: BAND NEUTROPHILS % (MANUAL) 7 %; EOSINOPHILS % (MANUAL) 1 % (0-7); LYMPHOCYTES % (MANUAL) 22 % (19-48); METAMYELOCYTES % (MANUAL) 1 % (0-0); MONOCYTES % (MANUAL) 10 % (3.4-9.0); NEUTROPHILS % (MANUAL) 59 % (40-74)
[2018-08-26 19:22] LABS: PLATELET ESTIMATE ADEQUATE; PLATELET MORPHOLOGY COMMENT NORMAL; RBC MORPHOLOGY COMMENT ABNORMAL
[2018-08-26 19:27] LABS: BURR CELLS MODERATE; POIKILOCYTOSIS MODERATE; SMUDGE CELLS MANY
--- NOTE | 2018-08-26 19:31 | NUR ---
PT IS RESTING IN BED WITH FAMILY AT BEDSIDE. NO RESPIRATORY DISTRESS NOTED. BED IN THE LOWEST POSITION, LOCKED, BED ALARM ON, AND CALL LIGHT WITHIN REACH. WILL CONTINUE TO MONITOR.
--- NOTE | 2018-08-26 21:10 | Consultation ---
DATE OF CONSULTATION: Pulmonary Critical Care Consultation CHIEF COMPLAINT: Dyspnea and cough. HISTORY OF PRESENT ILLNESS: The patient is an 88-year-old woman. She had a history of breast cancer 10 years ago. She reports frequent episodes of bronchitis over the last two years. She was required three hospitalizations. She came to the hospital about 2 days ago with difficulty breathing and altered mental status. She had some fevers as well. She received antibiotics and oxygen and has improved, but still has some congestion and cough. PAST SURGICAL HISTORY: 1. Status post breast surgery for breast cancer. 2. Status post operative repair of a hip fracture. PAST MEDICAL HISTORY: 1. Breast cancer. 2. Hip fracture. 3. Clavicular fracture. 4. Frequent episodes of bronchitis. 5. No history of heart disease. SOCIAL HISTORY: The patient is not a smoker. She is not a drinker. ALLERGIES: NO KNOWN DRUG ALLERGIES. FAMILY HISTORY: Noncontributory. REVIEW OF SYSTEMS: The patient did have some fevers on presentation. She is not having any headache. She has no sore throat. She has no neck pain. She is not complaining of any chest pain. She does have some dyspnea and cough. There is no abdominal pain. She has no leg edema. PHYSICAL EXAMINATION: VITAL SIGNS: The patient is afebrile. The blood pressure is 104/54 and the pulse is 108. Respiratory rate is 18. HEENT: Shows no facial swelling or erythema. The nasal mucosa is normal. The oropharynx is normal. LYMPHATIC: Shows no submandibular, cervical or supraclavicular adenopathy. CARDIAC: Reveals a regular rate and rhythm with a normal S1 and S2. There are no murmurs or rubs. LUNGS: Auscultation of lungs reveals rhonchorous breath sounds bilaterally. There is no wheezing. ABDOMEN: Soft and nontender. There is no rebound or guarding. EXTREMITIES: Show no leg edema. LABORATORY DATA: The white blood cell count is 8.5 and hemoglobin is 10.5. The platelet count is 167. The VJB-re-kvhswximoe ratio is 10 to 0.61. The potassium is 3.2. RADIOGRAPHIC DATA: Chest x-ray shows some chronic interstitial changes with probable bronchiectasis on the left side. IMPRESSION: 1. Bronchiectasis with acute exacerbation. 2. Pneumonia with sepsis, present on admission. 3. History of breast cancer. PLAN: 1. CT scan of chest to look for bronchiectasis. 2. Continue current antibiotics. 3. Bronchodilators. 4. Deep vein thrombosis prophylaxis. 5. Case discussed with the patient, family, and Dr. Horner. MD TEREZA Be/EUGENIA /[id number]
[2018-08-26] MEDS: AZITHROMYCIN 250 MG TAB PO SCH (21:18)
[2018-08-27] VITALS (8 sets, daily range): BP systolic 91–123; BP diastolic 54–64
[2018-08-27] MEDS: ACETAMINOPHEN 325 MG TAB PO PRN ×3 (00:32→23:15)
[2018-08-27] MEDS: CEFTAZIDIME SOD 1 GM/NS 50ML 50 ML IV SCH ×2 (01:30→14:00)
[2018-08-27 06:30] LABS: BASOPHILS % 0.1 % (0.0-1.0); EOSINOPHILS # (AUTO) 0.1 (0.0-0.4); EOSINOPHILS % 0.9 % (0.0-6.0); HEMOGLOBIN 10.5 g/dL (12.0-16.0); LYMPHOCYTES # (AUTO) 4.4 (1.0-3.2); LYMPHOCYTES % 50.3 % (18.0-39.1); MEAN CORPUSCULAR HEMOGLOBIN 32.8 pg (28-32); MEAN CORPUSCULAR HGB CONC 32.8 g/dL (31-35); MONOCYTES # (AUTO) 0.4 (0.2-0.8); NEUTROPHILS # (AUTO) 3.9 (2.1-6.9); NEUTROPHILS % 44.5 % (38.7-80.0); PLATELET COUNT 151 x10e3/uL (140-360); RED CELL DISTRIBUTION WIDTH 13.9 % (11.7-14.4)
[2018-08-27] MEDS: IPRATROPIUM BROMIDE 0.02% 2.5 ML NEB NEB SCH ×4 (07:00→20:15)
[2018-08-27 07:03] LABS: ANION GAP 8.9 mmol/L (8-16); BLOOD UREA NITROGEN 7 mg/dL (7-26); BUN/CREATININE RATIO 12 (6-25); CALCIUM 8.5 mg/dL (8.4-10.2); CARBON DIOXIDE 24 mmol/L (22-29); CHLORIDE 107 mmol/L (98-107); EST GLOMERULAR FILTRATION RATE > 60 ML/MIN (60-); GLUCOSE 94 mg/dL (74-118); POTASSIUM 3.9 mmol/L (3.5-5.1); SODIUM 136 mmol/L (136-145)
[2018-08-27 08:02] LABS: MAGNESIUM 2.1 MG/DL (1.3-2.1)
[2018-08-27] MEDS: SERTRALINE HCL 50 MG TAB PO SCH (09:00)
[2018-08-27] MEDS: HEPARIN SOD (PORCINE) 5,000 UNIT/ML VIAL SC SCH ×2 (09:00→21:00)
[2018-08-27] MEDS: METOPROLOL TARTRATE 25 MG TAB PO SCH ×2 (09:00→17:00)
[2018-08-27] MEDS: LACTOBACILLUS ACIDOPHILUS CAPSULE PO SCH ×2 (09:00→17:24)
[2018-08-27] MEDS: FUROSEMIDE 20 MG TAB PO SCH (09:00)
[2018-08-27] MEDS: GABAPENTIN 300 MG CAP PO SCH ×2 (09:00→17:24)
--- NOTE | 2018-08-27 11:00 | Progress Note ---
DATE: Pulmonary Critical Care Progress Note SUBJECTIVE: The patient feels somewhat better. She still has mild cough. She has no fever. CT scan showed minimal bronchiectasis. PHYSICAL EXAMINATION: VITAL SIGNS: The blood pressure is 120/56, the saturation is 98% on 6 L, the patient is afebrile, and the respiratory rate is 18. HEENT: Shows no facial swelling or erythema. LYMPHATIC: Shows no submandibular, cervical, or supraclavicular adenopathy. CARDIAC: Reveals regular rate and rhythm with normal S1, S2. There are no murmurs or rubs. Auscultation of lungs reveals rhonchorous breath sounds bilaterally. There is no wheezing. ABDOMEN: Soft, nontender. There is no rebound or guarding. EXTREMITIES: Show no leg edema or calf tenderness. There is no cyanosis or clubbing. SKIN: Shows no rashes. NEUROLOGIC: Shows no focal abnormalities. RADIOGRAPHIC DATA: Chest CT shows some right greater than left atelectasis with a small area of right lower lobe consolidation. There is minimal bronchiectasis. IMPRESSION: 1. Community-acquired pneumonia with sepsis that was present on admission. 2. History of breast cancer. 3. Deconditioning. PLAN: 1. Continue current antibiotics. 2. Swallowing evaluation for possible aspiration. 3. Physical therapy. 4. Wean oxygen as tolerated. Matthew Romero MD [facility]/[place] /[id number]
--- NOTE | 2018-08-27 17:29 | NUR ---
PT AWAKENS TO TAKE MEDICATION, VOICES NO NEEDS AT THIS TIME, HOB ELEVATED, CALL LIGHT WITHIN REACH, CARE PROVIDER AT BEDSIDE
--- NOTE | 2018-08-27 19:15 | NUR ---
BS rounds completed with morning nurse. Pt alert to name. Lying in bed 60 degrees. No s/s of pain. Family at bedside. Call oshea within reach. Will continue to monitor.
[2018-08-27] MEDS: AZITHROMYCIN 250 MG TAB PO SCH (23:00)
--- NOTE | 2018-08-27 23:35 | NUR ---
Called Dr. Fall in response to Pt increased HR 126-130s, Temp 99.6. O2 via NC Hi [place] @5L, sat 94%. Pt c/o mod pain to shoulder, acetaminophen received. Dr. Fall ordered Cardizem 30mg PO x1 dose. Will continue to monitor.
[2018-08-27] MEDS ORDERED: DILTIAZEM HCL 30 MG TAB PO ONE (23:45)
[2018-08-28] VITALS (8 sets, daily range): BP systolic 102–129; BP diastolic 55–64
--- NOTE | 2018-08-28 | NUR ---
Pt decreased HR 108. NO acute distress noted. Will continue to monitor.
[2018-08-28] MEDS: CEFTAZIDIME SOD 1 GM/NS 50ML 50 ML IV SCH ×2 (02:13→14:00)
[2018-08-28 06:20] LABS: BASOPHILS % 0.2 % (0.0-1.0); EOSINOPHILS # (AUTO) 0.1 (0.0-0.4); EOSINOPHILS % 1.3 % (0.0-6.0); HEMATOCRIT 31.1 % (34.2-44.1); HEMOGLOBIN 10.1 g/dL (12.0-16.0); LYMPHOCYTES # (AUTO) 4.3 (1.0-3.2); LYMPHOCYTES % 49.6 % (18.0-39.1); MEAN CORPUSCULAR HEMOGLOBIN 32.8 pg (28-32); MEAN CORPUSCULAR HGB CONC 32.5 g/dL (31-35); MONOCYTES # (AUTO) 0.3 (0.2-0.8); MONOCYTES % 3.6 % (4.4-11.3); NEUTROPHILS # (AUTO) 3.9 (2.1-6.9); NEUTROPHILS % 44.8 % (38.7-80.0); PLATELET COUNT 153 x10e3/uL (140-360); RED BLOOD COUNT 3.08 x10e6/uL (3.6-5.1); RED CELL DISTRIBUTION WIDTH 13.8 % (11.7-14.4)
[2018-08-28 06:51] LABS: ANION GAP 8.5 mmol/L (8-16); BLOOD UREA NITROGEN 9 mg/dL (7-26); BUN/CREATININE RATIO 15 (6-25); CALCIUM 8.7 mg/dL (8.4-10.2); CARBON DIOXIDE 25 mmol/L (22-29); CHLORIDE 101 mmol/L (98-107); CREATININE, SERUM 0.59 mg/dL (0.57-1.11); EST GLOMERULAR FILTRATION RATE > 60 ML/MIN (60-); GLUCOSE 82 mg/dL (74-118); POTASSIUM 3.5 mmol/L (3.5-5.1); SODIUM 131 mmol/L (136-145)
[2018-08-28 07:14] LABS: THYROID STIMULATING HORMONE 1.249 uIU/mL (0.350-4.940)
--- NOTE | 2018-08-28 07:30 | NUR ---
PT SLEEPING NO DISTRESS NTOED,O2 HI FAITH 9 L,
[2018-08-28] MEDS: IPRATROPIUM BROMIDE 0.02% 2.5 ML NEB NEB SCH ×4 (08:00→19:30)
--- NOTE | 2018-08-28 08:55 | NUR ---
PT REFUSES TO TAKE AM MEDS ,VERY DROWSY,C/O PELLETIER BUT REFUSED TYLENOL.
[2018-08-28] MEDS: LACTOBACILLUS ACIDOPHILUS CAPSULE PO SCH (09:00)
[2018-08-28] MEDS: SERTRALINE HCL 50 MG TAB PO SCH (09:00)
[2018-08-28] MEDS: HEPARIN SOD (PORCINE) 5,000 UNIT/ML VIAL SC SCH ×2 (09:00→22:06)
[2018-08-28] MEDS: GABAPENTIN 300 MG CAP PO SCH ×2 (09:00→17:00)
[2018-08-28] MEDS: METOPROLOL TARTRATE 25 MG TAB PO SCH (09:00)
[2018-08-28] MEDS: FUROSEMIDE 20 MG TAB PO SCH (09:00)
[2018-08-28] MEDS: ACETAMINOPHEN 325 MG TAB PO PRN (11:47)
--- NOTE | 2018-08-28 12:30 | NUR ---
PT IN BED VERY DROWSY,EASILY AROUSED,STILL C/O PELLETIER ABLE TO TAKE ONE TYLENOL,COUGHING AFTER DRINLING LIQUIDS
--- NOTE | 2018-08-28 13:30 | NUR ---
ST Note: Discussed case with SHAHZAD Layne, who reported pt continues to demonstrate decreased alertness and cooperation. She also stated pt now consistently coughs with thin liquids. Suggested that RN use thickener in liquids to administer medications, which may prevent aspiration, if she is in fact aspirating thin liquids. Also suggested pt be kept NPO until either her level of alertness improves or the modified barium swallow study is completed.
[2018-08-28] MEDS ORDERED: AZITHROMYCIN 500MG/NS 250 ML 250 ML IV ONE (15:45)
[2018-08-28] MEDS ORDERED: DILTIAZEM HCL 5 MG/ML 5 ML VIAL IV PRN (16:00)
[2018-08-28] MEDS: LACTATED RINGER'S 1,000 ML IV SCH (16:37)
--- NOTE | 2018-08-28 17:26 | Diagnostic Imaging Report ---
Examination: Single AP view of the chest. COMPARISON: August 26, 2018 INDICATION: Pneumonia DISCUSSION: Lines/tubes: None. Lungs: Lower lung atelectasis. No new consolidation. Pleura: No pleural effusion or pneumothorax. Heart and mediastinum: The heart and the mediastinum are unremarkable. Bones and soft tissues: No acute bony abnormalities. IMPRESSION: 1. Lower lung atelectasis. No new consolidation. Signed by: Dr. Enoc Lancaster M.D. on 08/28/2018 5:23 PM
[2018-08-28] MEDS: ACETAMINOPHEN 650 MG SUPP PR PRN (18:06)
--- NOTE | 2018-08-28 18:09 | Progress Note ---
DATE: Pulmonary Critical Care Progress Note SUBJECTIVE: The patient has some continued dyspnea and mild cough. She is still on oxygen at 7 L. OBJECTIVE: VITAL SIGNS: The patient is afebrile. Pulse is increased at 110 to 120. HEENT: Shows no facial swelling or erythema. CARDIAC: Reveals a regular rate and rhythm with normal S1, S2. There are no murmurs or rubs heard. LUNGS: Auscultation of lungs reveals rhonchorous breath sounds bilaterally. ABDOMEN: Soft, nontender. There is no rebound or guarding. EXTREMITIES: Show no leg edema or calf tenderness. There is no cyanosis or clubbing. SKIN: Shows no rashes. NEUROLOGIC: Shows no focal abnormalities. IMPRESSION: 1. Aspiration pneumonia with sepsis that was present on admission. 2. History of breast cancer. 3. Tachycardia. 4. Deconditioning. PLAN: 1. Continue current antibiotics. 2. Await swallowing evaluation. 3. EKG. MD TEREZA Be/EUGENIA /[id number]
--- NOTE | 2018-08-28 18:17 | NUR ---
PT IN BED ,C/O PELLETIER MEDICATED ,IV RESTARTED TO RT FA 20 GAUGE,
--- NOTE | 2018-08-28 19:20 | NUR ---
WALKING ROUNDS PERFORMED, RECEIVED PT LAYING SEMI FOWLERS IN BED, AAOX3, RR EVEN AND NON-LABORED, O2 BY HF NC AT 7L. NO S/SX OF DISTRESS NOTED. LEFT PT LAYING SEMI FOWLERS IN BED, BED IN LOW LOCKED POSITION, SIDE RAILS UPX2, CALL LIGHT AND PHONE WITHIN REACH. FAMILY PROVIDED SITTER AT BEDSIDE.
[2018-08-28] MEDS: METRONIDAZOLE 500MG/NS 100ML 100 ML IV SCH (21:36)
--- NOTE | 2018-08-28 22:30 | NUR ---
PT RETURNED FROM RADIOLOGY. PT AAO X3, RR EVEN AND NON-LABORED, O2 BY NC AT 7L. LEFT PT LAYING SEMI FOWLERS IN BED, BED IN LOW LOCKED POSITION, SIDE RAILS UPX2, CALL LIGHT AND PHONE WITHIN REACH.
--- NOTE | 2018-08-28 22:57 | Diagnostic Imaging Report ---
EXAM: CT Abdomen and Pelvis WITH contrast INDICATION: ^FEVER OF UNKNOWN ORIGIN COMPARISON: CT chest 08/26/2018. CT abdomen pelvis 10/17/2017. TECHNIQUE: Abdomen and pelvis were scanned utilizing a multidetector helical scanner from the lung base to the pubic symphysis after administration of IV contrast. Coronal and sagittal reformations were obtained. Routine protocol was performed. Scan was performed when during portal venous phase. IV CONTRAST: 100 mL of Isovue 370 ORAL CONTRAST: Water COMPLICATIONS: None RADIATION DOSE: Total DLP: 343.89 mGy*cm Estimated effective dose: (DLP x 0.015 x size factor) mSv CTDIvol has been reviewed. It is below the limits set by the Radiation Protocol Committee (RPC). Dose modulation, iterative reconstruction, and/or weight based adjustment of the mA/kV was utilized to reduce the radiation dose to as low as reasonably achievable. FINDINGS: LINES and TUBES: None. LOWER THORAX: Bilateral lung base pneumonia predominantly in both lower lobes. HEPATOBILIARY: No focal hepatic lesions. No biliary ductal dilation. GALLBLADDER: No radio-opaque stones or sludge. No wall thickening. SPLEEN: No splenomegaly. PANCREAS: Diffusely atrophic. No focal masses or ductal dilatation. ADRENALS: No adrenal nodules KIDNEYS/URETERS: Kidneys enhance symmetrically. No hydronephrosis. No cystic or solid mass lesions. No stones. GI TRACT: No abnormal distention, wall thickening, or evidence of bowel obstruction. Fluid attenuation throughout the ascending colon is nonspecific. Appendix is normal. PELVIC ORGANS/BLADDER: Unremarkable. LYMPH NODES: No lymphadenopathy. VESSELS: There is moderate atherosclerotic disease in the aorta and major arterial branches. Tortuous aorta. PERITONEUM / RETROPERITONEUM: No free air or fluid. BONES: Right hip prosthesis. Remote left inferior pubic ramus fracture. Compression fractures of L2 and L3 status post kyphoplasty. Compression fracture of L1 and T11. Generalized osteopenia. Degenerative disc disease at L5-S1. SOFT TISSUES: Unremarkable. IMPRESSION: 1. Bilateral lung base, predominantly the lower lobe, pneumonia. 2. No acute abdominal pelvic abnormality. Signed by: Dr. Lonny Alonzo M.D. on 08/28/2018 10:54 PM
[2018-08-29] VITALS (8 sets, daily range): BP systolic 99–132; BP diastolic 53–62
--- NOTE | 2018-08-29 00:10 | Consultation ---
DATE OF CONSULTATION: 08/28/2018 REASON FOR CONSULTATION: Persistent fevers, cough, chills. HISTORY OF PRESENT ILLNESS: This is an 88-year-old female with history of COPD, depression, anxiety, stroke, multiple fractures, questionable paroxysmal atrial fibrillation, hypertension. The patient presents to [facility] ER with apparently complaints of fevers, cough, mild just x2 days, and has been on medical treatment for pneumonia. However, the patient has been with intermittent fevers, therefore Cardiology was consulted to evaluate the patient. The patient is seen in room, most of the information was obtained from caregiver and daughter. The patient is confused and unable to give any information. Daughter reports that the patient has been having fevers and cough prior to admission, however, developed a wet cough, for which she was brought to the hospital for further evaluation. After discussing with the staff, staff reports that the patient seems to be aspirating with medications and food. There is a plan for the patient to have a barium swallow scheduled for tomorrow morning. PAST MEDICAL HISTORY: COPD, depression, anxiety, questionable paroxysmal atrial fibrillation, history of stroke, history of multiple fractures. PAST SURGICAL HISTORY: Kyphoplasty, left pelvic fracture, vein ablations, multiple back surgeries, left lumpectomy. SOCIAL HISTORY: She apparently lives by herself, however, does have 24-hour caregiver. She is a . No alcohol use or tobacco use reported. FAMILY HISTORY: Father apparently at the age of 80, apparently from an [place] history. Mother at age 84, she had a history of depression. HOME MEDICATIONS: Includes Lasix 20 mg once a day, gabapentin 600 mg b.i.d., hydrocodone/acetaminophen 10/325, one tablet q.4 p.r.n., Ativan 0.5 mg q.6h p.r.n., metoprolol 12.5 p.o. b.i.d., sertraline 50 mg daily. REVIEW OF SYSTEMS: Unable to obtain. ALLERGIES: NO KNOWN ALLERGIES. PHYSICAL EXAMINATION: VITAL SIGNS: Height 56 inches, weight 109 pounds, BMI 24, temperature 100.1, pulse 106, respiratory rate 16, blood pressure 129/59, pulse ox 96% on 6 L nasal cannula. GENERAL: Very frail, chronically ill patient, unable to give any information. She is confused to place, time, and situation. Only able to give me her name. SKIN: No rashes or bruises noted. HEENT: Normocephalic. Pupils are equal and reactive. Extraocular movements intact. Trachea midline. Oral mucosa pink. NECK: Soft right carotid bruit noted. HEART: Regular rate and rhythm. Soft systolic murmur heard over right upper sternal border. PMI about 4th, 5th intercostal space. ABDOMEN: Soft, nontender, nondistended. No organomegaly noted. MUSCULOSKELETAL: Generalized muscle weakness throughout. VASCULAR: +2 bilateral radial pulses, +1 DP/PT pulses bilaterally. NEUROLOGIC: Cranial nerves II through XII seem intact. LABORATORY DATA: White count 8, hemoglobin 10, hematocrit 31, platelets 153. Chemistry, sodium 131, potassium 3.5, chloride 101, BUN 9, creatinine 0.5. Troponin 0.005. TSH 1.2. CT chest showing findings compatible to bronchitis and also multilevel compression fractures. EKG showed normal sinus rhythm with left anterior fascicular block. Blood cultures on the 5th are negative. Urine cultures negative, drawn on the 5th. ASSESSMENT AND PLAN: 1. Aspiration pneumonia. 2. Persistent fevers. 3. Debility. 4. Frailty. PLAN: 1. The patient presents with fevers, chills, cough, being treated for bronchopneumonia. Seems to be aspirating according to staff, she is to have a modified barium swallow. We will approach the patient conservatively. We will start off with a surface echo to evaluate for any valve abnormalities. 2. We will go ahead and order two sets of blood cultures, one to be drawn now and the next to be drawn in the morning. 3. Antibiotic therapy per primary service. 4. We will continue to monitor the patient and adjust cardiac therapy as clinical course dictates. Thank you very much for this consult. SEEN AND EXAMINED CASE IS DISCUSSED WITH DAUGHTER WILL OBSERVE CLINICALLY WITH MORE BLOOD CULTURES, WILL GET ECHO LONG VISIT > 1 HOUR Dictated by Bob Thrasher NP Jarrell Dao MD [facility]/EUGENIA /[id number] MIL[place]
[2018-08-29] MEDS ORDERED: IOPAMIDOL 370 MG/ML 200 ML INFUS..BTL INJ ONE (00:17)
[2018-08-29] MEDS ORDERED: SODIUM CHLORIDE 0.9% 50ML 50 ML ONE (00:17)
--- NOTE | 2018-08-29 01:12 | NUR ---
SPOKE WITH MARKO IN LAB CONCERNING ORDER FOR RESP VIRUS PANEL PCR, WILL BE NOTIFIED WHEN CORRECT COLLECTION TUBING AVAILABLE FOR WOOD FENCE INSTALLER COLLECTION.
[2018-08-29] MEDS: CEFTAZIDIME SOD 1 GM/NS 50ML 50 ML IV SCH ×2 (02:00→14:00)
--- NOTE | 2018-08-29 04:01 | Consultation ---
DATE OF CONSULTATION: 08/28/2018 REASON FOR CONSULTATION: Fever, despite antibiotics. Thank you Dr. Fall for asking me to see this patient. HISTORY OF PRESENT ILLNESS: The patient is an 88-year-old woman, referred for fever despite antibiotics. She was admitted through the emergency department with bacterial bronchitis associated with chronic obstructive pulmonary disease. She presented to the emergency department with sudden onset of fever. She was having chest congestion characterized by wet cough without sputum production. The patient also had constipation initially, but developed diarrhea, following laxative treatment. The diarrhea resolved spontaneously in few days. There was no dysuria or urinary complaint. The patient's caregiver was dealing with similar symptoms like these earlier. The patient has not travelled abroad. However, she owns a cat which stays indoors, but there is no kitten, and the patient has no evidence of exposing to parturient animal. In the emergency department, she was noted to have fever to 101.2 degree Farenheit, pulse rate 117, respiratory rate 18, blood pressure 99/59, and oxygen saturation 91% on room air. [place] laboratory [place] [address] with 51.7% neutrophil, BUN 11, creatinine 0.63, and positive group A strep screen of the throat. Chest x-ray showed mild bilateral perihilar peribronchial thickening, but no focal consolidation. PAST MEDICAL HISTORY: Atrial fibrillation, right breast cancer treated with surgery and radiation. PAST SURGICAL HISTORY: Lumpectomy for right breast cancer, back surgery, and hip replacement. ALLERGIES: NO KNOWN DRUG ALLERGIES. MEDICATIONS: The current antibiotics, ceftazidime 1 g IV piggyback q.12 hours, metronidazole 500 mg IV piggyback q.8 hours. She received azithromycin earlier. IMMUNIZATIONS: She received influenza vaccine last fall. She declined pneumococcal vaccination in the past. FAMILY HISTORY: Noncontributory. SOCIAL HISTORY: The patient never smoked. The was an ex-smoker. No alcohol or recreational drug use. REVIEW OF SYSTEMS: As per history of present illness. PHYSICAL EXAMINATION: GENERAL: Acutely ill. VITAL SIGNS: T-max 101.2, pulse rate 12, respiratory rate 17, blood pressure 126/64, weight 109 pounds. HEENT: Normocephalic. There is no icterus or injection of the conjunctivae. There is no ear or nasal discharge. Moist oral mucosa. Uncooperative pharyngeal examination. NECK: Supple. No meningismus. LUNGS: Rhonchi bilaterally. HEART: Normal S1 and S2. ABDOMEN: Soft and nontender. EXTREMITIES: There is no edema, clubbing, or cyanosis. SKIN: Warm, chronic, but no acute erythema. LEGAL CASHIER: Awake and alert. Nonfocal. LABORATORY AND DIAGNOSTICS: WBC 8650, hemoglobin 10.1, platelets 153,000, neutrophils 44.8, lymphocytes 49.6, monocytes 3.6, eosinophils 1.6, basophils 0.2. BUN 9, creatinine 0.59. On 08/24/2018, blood culture no growth. On 08/28/2018, blood culture pending. Chest CT scan showed nonspecific bronchitis, right greater than left atelectasis with a small area of right lower lobe consolidation, which may reflect superimposed pneumonia, moderate sliding hiatal hernia, multilevel indeterminate compression fracture deformities. IMPRESSION: 1. Fever of unknown origin. 2. Respiratory tract infection, and questionable aspiration. 3. Positive group A throat streptococcus screen test. PLAN: 1. Check respiratory virus PCR and throat culture. 2. Also check echocardiogram report and CT scan of the abdomen and pelvis. MD CHRISTOPHER Longoria/EUGENIA /[id number]
[2018-08-29] MEDS: LACTATED RINGER'S 1,000 ML IV SCH ×2 (05:20→21:51)
[2018-08-29] MEDS: METRONIDAZOLE 500MG/NS 100ML 100 ML IV SCH ×3 (05:36→21:51)
--- NOTE | 2018-08-29 05:38 | NUR ---
PT REPORTS CHEST PAIN THAT RADIATES DOWN (R) ARM. STAT EKG CALLED TO RESPIRATORY.
[2018-08-29] MEDS: ACETAMINOPHEN 650 MG SUPP PR PRN (05:55)
--- NOTE | 2018-08-29 06:16 | NUR ---
SPOKE TO MD GRANT CONCERNING PT REPORTS OF CHEST PAIN. NO NEW ORDERS AT THIS TIME.
[2018-08-29 06:34] LABS: BASOPHILS % 0.2 % (0.0-1.0); EOSINOPHILS # (AUTO) 0.1 (0.0-0.4); EOSINOPHILS % 0.7 % (0.0-6.0); HEMATOCRIT 31.6 % (34.2-44.1); HEMOGLOBIN 10.4 g/dL (12.0-16.0); LYMPHOCYTES # (AUTO) 4.7 (1.0-3.2); MEAN CORPUSCULAR HEMOGLOBIN 32.8 pg (28-32); MEAN CORPUSCULAR HGB CONC 32.9 g/dL (31-35); MEAN CORPUSCULAR VOLUME 99.7 fL (81-99); MONOCYTES # (AUTO) 0.3 (0.2-0.8); MONOCYTES % 3.3 % (4.4-11.3); NEUTROPHILS # (AUTO) 4.9 (2.1-6.9); NEUTROPHILS % 48.4 % (38.7-80.0); PLATELET COUNT 159 x10e3/uL (140-360); RED BLOOD COUNT 3.17 x10e6/uL (3.6-5.1); RED CELL DISTRIBUTION WIDTH 13.8 % (11.7-14.4)
--- NOTE | 2018-08-29 06:55 | NUR ---
STAGE 2 NOTED TO SACRAL CREASE WHILE CHANGING DIAPER. APPLIED SOHAIL, WOUND CONSULTATION PLACED.
[2018-08-29 06:56] LABS: ANION GAP 13.6 mmol/L (8-16); BLOOD UREA NITROGEN 7 mg/dL (7-26); BUN/CREATININE RATIO 13 (6-25); CALCIUM 8.6 mg/dL (8.4-10.2); CARBON DIOXIDE 23 mmol/L (22-29); CHLORIDE 101 mmol/L (98-107); CREATININE, SERUM 0.54 mg/dL (0.57-1.11); EST GLOMERULAR FILTRATION RATE > 60 ML/MIN (60-); GLUCOSE 72 mg/dL (74-118); POTASSIUM 3.6 mmol/L (3.5-5.1); SODIUM 134 mmol/L (136-145)
[2018-08-29] MEDS: IPRATROPIUM BROMIDE 0.02% 2.5 ML NEB NEB SCH ×4 (07:00→19:42)
--- NOTE | 2018-08-29 07:24 | NUR ---
PATIENT IN BED RESTING WITH EYES CLOSED, NO RESPIRATORY DISTRESS OBSERVED. BED IN LOWER POSITION, CALL LIGHT AT REACH.
[2018-08-29] MEDS: FUROSEMIDE 20 MG TAB PO SCH ×2 (09:00→10:04)
[2018-08-29] MEDS: GABAPENTIN 300 MG CAP PO SCH ×3 (09:00→17:08)
[2018-08-29] MEDS: HEPARIN SOD (PORCINE) 5,000 UNIT/ML VIAL SC SCH ×2 (09:30→21:52)
--- NOTE | 2018-08-29 12:34 | Diagnostic Imaging Report ---
EXAM: Modified barium swallow with Speech Pathologist INDICATION: ^DIFFICLTY SWALLOWING ^[id number] ^0930 ^Y COMPARISON: None available. RADIATION DOSE: Fluoroscopy Time: 2.1 min Dose (Kerma) Area Product: 2.3 Gycm2 Air Kerma (AK) value has been reviewed. It is below the limits set by the Radiation Protocol Committee (RPC) committee. FINDINGS: See impression IMPRESSION: No witnessed or documented laryngeal penetration or tracheal aspiration, though aspiration was suspected between swallows of thin liquids. Please see speech pathology report for detailed description and recommendations. Signed by: Dr. Bob Mancilla M.D. on 08/29/2018 12:30 PM
--- NOTE | 2018-08-29 16:15 | NUR ---
PATIENT ASSISTED WITH DIAPER CHANGE. REPOSITIONED IN BED. BED IN LOWER POSITION, CALL LIGHT AT REACH. FAMILY AT BED SIDE.
--- NOTE | 2018-08-29 16:18 | NUR ---
WOUND CAR CONSULTATION - INITIAL EVALUATION WC Consulted for Sacral Wound Evaluation LOS 4 days Moderate PUP Active VISCO mattress in place. WBC10.21 HGB10.4 HCT31.6 GLU72 PATIENT VISIT: LOS 4 days Moderate PUP Active Riley Score 11 Alternating Pressure Pump at bedside. Visco Mattress In place IMPRESSION: Sacral-Right: Stage II Pressure Ulcer RECOMMENDATION: 1. Sacral Right -Pressure Stage II : - Cleanse wound with NS and 4x4 gauze - Apply Aramis Cream and Cover with Allevyn Foam Sacrum Daily 2. Initiate Alternating Pressure Air Mattress 3. Turn and Reposition every 2 Hours using Wall Clock Turning Schedule. 4. HOB <30 Degrees as tolerated while in bed 5. Bilateral Heel Protectors/ Offload Heels with Pillows while in bed. 6. Initiate Strict PUP Thank you for consulting with Wound Care. Addendum: 08/29/18 at 1629 by Chaparro Bernard RN Amended: Links added.
[2018-08-29] MEDS: HYDROCODONE/APAP 10MG-325MG TAB PO PRN (17:15)
--- NOTE | 2018-08-29 17:41 | Progress Note ---
DATE: Pulmonary Critical Care Progress Note SUBJECTIVE: The patient is on a high-flow nasal cannula. She was seen by Infectious Disease today. PHYSICAL EXAMINATION: VITAL SIGNS: The blood pressure is 110/57 and the pulse is 112. The respiratory rate is 16. HEENT: Shows no facial swelling or erythema. The oropharynx is normal. LYMPHATIC: Shows no submandibular, cervical or supraclavicular adenopathy. CARDIAC: Reveals a regular rate and rhythm with normal S1, S2. There are no murmurs or rubs heard. LUNGS: Auscultation of lungs reveals clear breath sounds bilaterally. There is no wheezing. ABDOMEN: Soft, nontender. There is no rebound or guarding. EXTREMITIES: Show no leg edema or calf tenderness. IMPRESSION: 1. Aspiration pneumonia with sepsis, present on admission. 2. History of breast cancer. 3. Deconditioning. PLAN: 1. Continue current antibiotics. 2. Await final culture results. 3. Wean oxygen as tolerated. 4. Physical therapy. Matthew Romero MD [facility] /[id number]
--- NOTE | 2018-08-29 19:44 | NUR ---
PT IS RESTING IN BED WITH PRIVATE SITTER AT BEDSIDE. NO RESPIRATORY DISTRESS NOTED. BED IN THE LOWEST POSITION, LOCKED, BED ALARM ON, AND CALL LIGHT WITHIN REACH. WILL CONTINUE TO MONITOR.
[2018-08-30] VITALS (7 sets, daily range): BP systolic 123–146; BP diastolic 56–72
[2018-08-30] MEDS: CEFTAZIDIME SOD 1 GM/NS 50ML 50 ML IV SCH ×2 (02:17→14:00)
[2018-08-30] MEDS: METRONIDAZOLE 500MG/NS 100ML 100 ML IV SCH ×3 (05:13→21:23)
[2018-08-30] MEDS: HYDROCODONE/APAP 10MG-325MG TAB PO PRN ×2 (05:22→18:00)
[2018-08-30] MEDS: IPRATROPIUM BROMIDE 0.02% 2.5 ML NEB NEB SCH ×4 (06:30→19:38)
--- NOTE | 2018-08-30 07:15 | NUR ---
PATIENT IN BED RESTING WITH EYES CLOSED, NO RESPIRATORY DISTRESS OBSERVED. HIGH FLOW O2 IN PLACE. BED IN LOWER POSITION, CALL LIGHT AT REACH.
[2018-08-30] MEDS: HEPARIN SOD (PORCINE) 5,000 UNIT/ML VIAL SC SCH ×2 (09:00→21:18)
[2018-08-30] MEDS: FUROSEMIDE 20 MG TAB PO SCH (09:07)
[2018-08-30] MEDS: GABAPENTIN 300 MG CAP PO SCH ×2 (09:07→17:41)
[2018-08-30] MEDS: LACTATED RINGER'S 1,000 ML IV SCH ×2 (10:43→21:18)
[2018-08-30] MEDS: ZINC OXIDE / BALSAM PERU 30 GM TUBE TOP SCH (10:44)
--- NOTE | 2018-08-30 11:37 | NUR ---
PATIENT REPOSITIONED IN BED, DIAPER CHECKED. CALL LIGHT AT REACH, FAMILY AT BED SIDE.
--- NOTE | 2018-08-30 15:24 | Diagnostic Imaging Report ---
EXAM: CHEST SINGLE (PORTABLE) DATE: 08/30/2018 12:28 PM INDICATION: Pneumonia COMPARISON: Chest x-ray, 08/28/2018 FINDINGS: Lines and tubes: None Heart size normal. Increased airspace opacity at both lung bases. Trace pleural effusion on the left. No pneumothorax. Upper abdomen unremarkable with barium seen in the colon. There is apparent vertebroplasty cement in a lumbar vertebral body. Ununited fracture of the right clavicle. IMPRESSION: Increased airspace opacity in the lung bases which may represent multifocal pneumonia. Small left pleural effusion, increased from previous exam. Signed by: Dr. Josse Fang M.D. on 08/30/2018 3:21 PM
--- NOTE | 2018-08-30 16:10 | NUR ---
PATIENT REFUSED PHYSICAL THERAPY AFTER 2 ATTEMPTS. EDUCATED ON THE IMPORTANCE OF THERAPY, PATIENT STILL REFUSED.
--- NOTE | 2018-08-30 16:36 | NUR ---
ORDER RECEIVED FOR HOME PT/ST. MET W THE PT, DTR / JAZMYN AND CAREGIVER AT THE BEDSIDE. JAZMYN STATES THE PT IS AOS W [facility] @ [phone]. WILL FAX REFERRAL TO [facility] .
--- NOTE | 2018-08-31 | NUR ---
PT REFUSE MIDNIGHT VITALS. PER PT SHE WANTS TO REST. WILL CONTINUE TO MONITOR.
[2018-08-31] MEDS: CEFTAZIDIME SOD 1 GM/NS 50ML 50 ML IV SCH ×2 (01:59→13:41)
[2018-08-31] MEDS: HYDROCODONE/APAP 10MG-325MG TAB PO PRN (04:50)
[2018-08-31] MEDS: METRONIDAZOLE 500MG/NS 100ML 100 ML IV SCH ×3 (05:03→21:31)
[2018-08-31 05:45] VITALS: BP 150/75
[2018-08-31] MEDS: IPRATROPIUM BROMIDE 0.02% 2.5 ML NEB NEB SCH ×4 (07:18→19:25)
--- NOTE | 2018-08-31 07:30 | NUR ---
pt in bed sleeping no distress noted,o2 [address],
[2018-08-31 08:00] VITALS: BP 112/56
[2018-08-31] MEDS: FUROSEMIDE 20 MG TAB PO SCH (09:00)
[2018-08-31] MEDS: HEPARIN SOD (PORCINE) 5,000 UNIT/ML VIAL SC SCH ×2 (09:00→21:00)
[2018-08-31] MEDS: GABAPENTIN 300 MG CAP PO SCH (09:00)
--- NOTE | 2018-08-31 10:45 | NUR ---
pt up in chair tolerated well.denies pain
[2018-08-31] MEDS: LACTATED RINGER'S 1,000 ML IV SCH ×2 (11:10→22:06)
[2018-08-31] MEDS: ZINC OXIDE / BALSAM PERU 30 GM TUBE TOP SCH (11:10)
[2018-08-31 12:00] VITALS: BP 132/82
[2018-08-31] MEDS ORDERED: ONDANSETRON HCL INJ 2MG/ML 2ML 2 MG/ML VIAL IV PRN (14:15)
[2018-08-31] MEDS ORDERED: ONDANSETRON HCL 4 MG ORAL DISINTEGRATING TAB PO PRN (14:30)
--- NOTE | 2018-08-31 15:52 | Progress Note ---
DATE: Pulmonary Critical Care Progress Note SUBJECTIVE: The patient is weaker today. She had some vomiting after nebulizer treatment. She is still requiring 7 L of oxygen. OBJECTIVE: VITAL SIGNS: The patient is afebrile. The vital signs are stable. HEENT: Shows no facial swelling or erythema. The nasal mucosa is normal. The oropharynx is normal. LYMPHATIC: Shows no submandibular, cervical, or supraclavicular adenopathy. NECK: Shows no JVD or thyromegaly. There is no nuchal rigidity. CARDIAC: Reveals regular rate and rhythm with normal S1 and S2. There are no murmurs or rubs. LUNGS: Auscultation of lungs reveals rhonchorous breath sounds bilaterally. There is no wheezing. ABDOMEN: Soft and nontender. There is no rebound or guarding. EXTREMITIES: Show no leg edema or calf tenderness. IMPRESSION: 1. Hypoxemia. 2. Aspiration pneumonia. 3. Deconditioning. 4. Moderate protein-calorie malnutrition. 5. Atrial fibrillation. PLAN: 1. Consider CTA of the chest to evaluate for pulmonary embolism. 2. Continue oxygen. 3. Physical therapy. 4. Antibiotics. 5. Overall prognosis is poor. Daughter is considering less aggressive measures. Matthew Romero MD [facility]/MODL /[id number]
[2018-08-31 16:00] VITALS: BP 128/71
--- NOTE | 2018-08-31 16:55 | NUR ---
family and patient refused psch consult
--- NOTE | 2018-08-31 19:07 | NUR ---
pt up in bed o2 [address],denies pain,no sob noted.
--- NOTE | 2018-08-31 19:15 | NUR ---
patient received awake, alert, lying quietly in bed. no c/o pain noted. ivf continue to infuse without difficulty. patient repositioned for comfort. pm assessment complete. family noted at the bedside. patient/family instructed to call for assistance when needed.
[2018-08-31 19:30] VITALS: BP 140/75
[2018-08-31 20:56] VITALS: BP 140/75
--- NOTE | 2018-08-31 21:46 | NUR ---
patient attempted to eat oatmeal brought in by family. patient medicated with zofran 4 mg ivp for c/o nausea. will continue to monitor.
--- NOTE | 2018-08-31 22:00 | NUR ---
patient oob to chair per patients request. patient oob to chair for about 10 minutes and patient back to bed with assistance. family remains at the bedside.
[2018-08-31] MEDS: ACETAMINOPHEN 325 MG TAB PO PRN (22:55)
--- NOTE | 2018-08-31 22:55 | NUR ---
patient medicated with tylenol 650 mg po for c/o headache 08/29 at this time.
[2018-09-01] VITALS (7 sets, daily range): BP systolic 103–148; BP diastolic 57–76
[2018-09-01] MEDS: CEFTAZIDIME SOD 1 GM/NS 50ML 50 ML IV SCH ×2 (01:21→13:53)
[2018-09-01] MEDS: HYDROCODONE/APAP 10MG-325MG TAB PO PRN (05:13)
--- NOTE | 2018-09-01 05:13 | NUR ---
patient medicated with norco 10/325 mg po for c/o headache 10/29 at this time.
[2018-09-01] MEDS: METRONIDAZOLE 500MG/NS 100ML 100 ML IV SCH ×3 (05:14→21:02)
[2018-09-01 05:41] LABS: BASOPHILS % 0.1 % (0.0-1.0); EOSINOPHILS # (AUTO) 0.1 (0.0-0.4); EOSINOPHILS % 1.6 % (0.0-6.0); HEMOGLOBIN 9.9 g/dL (12.0-16.0); LYMPHOCYTES # (AUTO) 3.3 (1.0-3.2); LYMPHOCYTES % 48.1 % (18.0-39.1); MEAN CORPUSCULAR HEMOGLOBIN 32.5 pg (28-32); MEAN CORPUSCULAR VOLUME 98.4 fL (81-99); MONOCYTES # (AUTO) 0.2 (0.2-0.8); MONOCYTES % 3.2 % (4.4-11.3); NEUTROPHILS # (AUTO) 3.2 (2.1-6.9); NEUTROPHILS % 46.6 % (38.7-80.0); PLATELET COUNT 204 x10e3/uL (140-360); RED BLOOD COUNT 3.05 x10e6/uL (3.6-5.1); RED CELL DISTRIBUTION WIDTH 13.6 % (11.7-14.4)
[2018-09-01 06:07] LABS: ALANINE AMINOTRANSFERASE 16 IU/L (0-55); ALBUMIN 2.1 g/dL (3.5-5.0); ALKALINE PHOSPHATASE 48 IU/L (40-150); ANION GAP 13.6 mmol/L (8-16); BILIRUBIN,DIRECT 0.2 mg/dL (0.0-0.5); BLOOD UREA NITROGEN < 5 mg/dL (7-26); CALCIUM 8.3 mg/dL (8.4-10.2); CARBON DIOXIDE 29 mmol/L (22-29); CHLORIDE 99 mmol/L (98-107); CREATININE, SERUM 0.49 mg/dL (0.57-1.11); EST GLOMERULAR FILTRATION RATE > 60 ML/MIN (60-); GLUCOSE 81 mg/dL (74-118); LIPASE 9 U/L (8-78); MAGNESIUM 1.3 MG/DL (1.3-2.1); SODIUM 139 mmol/L (136-145)
[2018-09-01 06:09] LABS: BUN/CREATININE RATIO 10 (6-25)
[2018-09-01 06:10] LABS: POTASSIUM 2.6 mmol/L (3.5-5.1)
[2018-09-01] MEDS ORDERED: POTASSIUM CHLORIDE 20 MEQ TAB CR PO STA (06:15)
[2018-09-01] MEDS ORDERED: POTASSIUM CHLORIDE 20MEQ/100ML 200 ML IV ONE (06:15)
--- NOTE | 2018-09-01 06:15 | NUR ---
k+ 2.9 notified and new orders noted.
[2018-09-01] MEDS: IPRATROPIUM BROMIDE 0.02% 2.5 ML NEB NEB SCH ×4 (07:12→19:41)
--- NOTE | 2018-09-01 07:30 | NUR ---
PT IN BED SLEEPING ,NO S/S DISTRESS,O2 7L HI FAITH,
[2018-09-01] MEDS: GABAPENTIN 300 MG CAP PO SCH (09:08)
[2018-09-01] MEDS: HEPARIN SOD (PORCINE) 5,000 UNIT/ML VIAL SC SCH (09:08)
[2018-09-01] MEDS ORDERED: MAGNESIUM SULFATE 2GM/50ML 50 ML IV ONE (11:00)
--- NOTE | 2018-09-01 11:00 | NUR ---
PT TRANSPORTED TO XRAY VIA BED O2 [address]
--- NOTE | 2018-09-01 11:20 | NUR ---
RETURNED TO ROOM
[2018-09-01] MEDS: ZINC OXIDE / BALSAM PERU 30 GM TUBE TOP SCH (11:41)
--- NOTE | 2018-09-01 12:18 | Diagnostic Imaging Report ---
EXAM: CT Chest WITH contrast - Pulmonary Embolism Protocol INDICATION: Bronchitis, COPD exacerbation. Rule out pulmonary embolism. COMPARISON: Chest radiograph 08/30/2018. CT chest 08/26/2018. TECHNIQUE: Chest was scanned utilizing a multidetector helical scanner from the lung apex through the level of the diaphragm after administration of IV contrast. Thin section reconstructions were obtained with special concentration on the pulmonary arteries. Coronal and sagittal reformations were obtained. Pulmonary embolism protocol was performed. IV CONTRAST: 100 cc of Isovue-370. RADIATION DOSE: Total DLP: 368.9 mGy*cm COMPLICATIONS: None FINDINGS: LINES/ TUBES: None. PULMONARY ARTERIES: The study is adequate for evaluation of pulmonary embolism to the level of the segmental pulmonary arteries. Main pulmonary artery measures 2.3 in diameter. No filling defect is identified within the pulmonary arteries to the segmental level. LUNGS AND AIRWAYS: The central airways are patent. There is diffuse mild bronchial wall thickening. There is increasing confluent consolidation in the bilateral lower lobes with air bronchograms. There are new patchy opacities in the left greater than right upper lobes, for example on series 2, images 13, 24, and 62. PLEURA: Trace bilateral pleural effusions, right greater than left. HEART AND MEDIASTINUM: There is a hypodense nodule within the left thyroid lobe, measuring up to 1.1 cm. No mediastinal, hilar or axillary lymphadenopathy. Mild cardio megaly. No evidence of pericardial effusion. Moderate hiatal hernia. Scattered after cirrhotic calcifications. UPPER ABDOMEN: Limited contrast-enhanced views of the upper abdomen without acute abnormality. Enteric contrast is noted within the colon. BONES/SOFT TISSUES: Diffuse osteopenia. No acute osseous abnormality. Multilevel age indeterminant compression deformities of the mid to lower thoracic vertebral bodies and L1, as noted on prior CT. IMPRESSION: No evidence of pulmonary embolism to the level of the segmental pulmonary arteries. Increasing and new sites of multifocal consolidative opacities, consistent with multifocal pneumonia. Hypodense 1.1 cm left thyroid lobe nodule. Ultrasound may be considered for further evaluation. Signed by: Dr. Ward Soto MD on 09/01/2018 12:15 PM
[2018-09-01] MEDS: LACTATED RINGER'S 1,000 ML IV SCH (13:53)
--- NOTE | 2018-09-01 17:42 | NUR ---
pt k+ too low as per guidelines , will follow up monday Addendum: 09/01/18 at 1743 by Franco Junior PTA Amended: Links added.
[2018-09-01] MEDS ORDERED: SODIUM CHLORIDE 0.9% 50ML 50 ML ONE (18:22)
[2018-09-01] MEDS ORDERED: IOPAMIDOL 370 MG/ML 200 ML INFUS..BTL INJ ONE (18:22)
--- NOTE | 2018-09-01 18:43 | NUR ---
PT IN BED SLEEPING NO DISTRESS NTOED,O2 [address],
[2018-09-02] VITALS (7 sets, daily range): BP systolic 127–146; BP diastolic 59–85
[2018-09-02] MEDS: LACTATED RINGER'S 1,000 ML IV SCH ×2 (00:41→16:28)
[2018-09-02] MEDS: CEFTAZIDIME SOD 1 GM/NS 50ML 50 ML IV SCH ×2 (00:41→15:00)
[2018-09-02] MEDS: HYDROCODONE/APAP 10MG-325MG TAB PO PRN (03:08)
[2018-09-02] MEDS: METRONIDAZOLE 500MG/NS 100ML 100 ML IV SCH ×3 (05:42→21:45)
--- NOTE | 2018-09-02 07:30 | NUR ---
PT UP IN BED SLEEPING NO DISTRESS NTOED,O2 5 L NC HI FAITH IN PLACE,SITTER AT BEDSIDE
[2018-09-02] MEDS: IPRATROPIUM BROMIDE 0.02% 2.5 ML NEB NEB SCH ×4 (07:47→19:39)
--- NOTE | 2018-09-02 08:30 | NUR ---
PT UP IN BED APPETITE BETTER,MORE AWAKE.ASSISTED UP TO BSC MINASSIST
[2018-09-02] MEDS: GABAPENTIN 300 MG CAP PO SCH (09:13)
[2018-09-02] MEDS ORDERED: ONDANSETRON HCL 4 MG ORAL DISINTEGRATING TAB PO PRN (10:45)
[2018-09-02] MEDS: ZINC OXIDE / BALSAM PERU 30 GM TUBE TOP SCH (11:00)
--- NOTE | 2018-09-02 11:00 | NUR ---
assisted pt up to chair min assist tolerated well,
[2018-09-02 12:35] LABS: MAGNESIUM 1.7 MG/DL (1.3-2.1); POTASSIUM 3.8 mmol/L (3.5-5.1)
--- NOTE | 2018-09-02 13:45 | NUR ---
pt up to shower tolerated well.
--- NOTE | 2018-09-02 15:35 | NUR ---
Visit made by the Spiritual Care Department Pastoral Visitor, Delma Price. PV provided pastoral presence, prayer, hospitality, and supportive listening. Pastoral Visitor informed pt/family of the scope of [employer] and availability. EDOUARD GAMING Clinical Educator Spiritual Care Department O: [phone] Pager: [phone] ([phone] number calling from)
[2018-09-02] MEDS ORDERED: FUROSEMIDE INJ 10 MG/ML 4 ML VIAL IV ONE (17:00)
--- NOTE | 2018-09-02 17:54 | NUR ---
pt in bed resting no s/s discomfort,denies pain.o2 2l nc in place ,no sob noted
[2018-09-02] MEDS: HEPARIN SOD (PORCINE) 5,000 UNIT/ML VIAL SC SCH (22:00)
[2018-09-03] VITALS (8 sets, daily range): BP systolic 119–157; BP diastolic 56–77
[2018-09-03] MEDS: CEFTAZIDIME SOD 1 GM/NS 50ML 50 ML IV SCH ×2 (02:49→14:55)
[2018-09-03] MEDS: LACTATED RINGER'S 1,000 ML IV SCH (05:35)
[2018-09-03] MEDS: METRONIDAZOLE 500MG/NS 100ML 100 ML IV SCH ×3 (05:35→21:30)
[2018-09-03] MEDS: IPRATROPIUM BROMIDE 0.02% 2.5 ML NEB NEB SCH ×4 (07:00→20:11)
--- NOTE | 2018-09-03 07:27 | NUR ---
PATIENT IN BED WITH HEAD OF BED ELEVATED RECEIVING NEB TREATMENT. ENTRY LEVEL PROGRAMMER IN PLACE. BED IN LOWER POSITION, CALL LIGHT AT REACH. FAMILY AT BED SIDE.
[2018-09-03] MEDS: HEPARIN SOD (PORCINE) 5,000 UNIT/ML VIAL SC SCH ×2 (09:00→21:00)
[2018-09-03] MEDS: GABAPENTIN 300 MG CAP PO SCH (09:21)
[2018-09-03] MEDS: ZINC OXIDE / BALSAM PERU 30 GM TUBE TOP SCH (09:21)
--- NOTE | 2018-09-03 11:00 | NUR ---
IN THE ROOM TO TURN AND REPOSITIONED PATIENT, FAMILY MEMBER REQUESTED THAT PATIENT SHOULD BE LEFT ALONE BECAUSE SHE WANTS TO SLEEP.
--- NOTE | 2018-09-03 11:46 | NUR ---
PATIENT ASSISTED WITH DIAPER CHANGE, CREAM APPLIED TO SACRUM ORDERED. BED IN LOWER POSITION, CALL LIGHT AT REACH.
--- NOTE | 2018-09-03 16:00 | NUR ---
RECEIVED ORDER FOR HOME O2. PT MEETS REQUIREMENT FOR HOME O2. SPOKE W BEDSIDE RN, CARISSA. STATES DR. LOPEZ WILL BE SPEAKING W THE DTRS ABOUT [facility]FORT CARE / HOSPICE. INFORMED SHAHZAD FERRER IF THEY AGREE TO HOSPICE, THE HOSPICE WILL ARRANGE. AGREED TO ADDRESS HOME O2 AFTER DR. LOPEZ HAS SPOKEN W THE DTRS. WILL F/U TOMORROW.
--- NOTE | 2018-09-03 16:22 | NUR ---
PATIENT'S DAUGHTER REQUESTED TO TALK TO , CALLED. PATIENT'S DAUGHTER STATED THAT HER QUESTIONS WERE ANSWERED.
--- NOTE | 2018-09-03 19:15 | NUR ---
patient received awake, alert, lying quietly in bed. no c/o pain noted. ivf continue to infuse without difficulty. 02/2l/nc in use. respirations even and unlabored. pm assessment complete. family noted at the bedside. patient/family instructed to call for assistance when needed.
--- NOTE | 2018-09-03 22:44 | Consultation ---
DATE OF CONSULTATION: Psychiatry was consulted to see Ms. Brynn Gallegos. Psychiatry attempted to see her on Monday last week on 08/31 by family members and patient refused Psychiatry. The nursing staff on Monday was informed that the patient and family members refused and to notify Dr. Fall about it. Dictated by Princess Ga PA-C MD [facility]/MODL /[id number]
[2018-09-04] VITALS (8 sets, daily range): BP systolic 119–147; BP diastolic 57–75
[2018-09-04] MEDS: HYDROCODONE/APAP 10MG-325MG TAB PO PRN ×3 (00:47→22:00)
--- NOTE | 2018-09-04 00:47 | NUR ---
patient medicated with norco 10/325 mg po for c/o right leg/knee pain / at this time.
[2018-09-04] MEDS: CEFTAZIDIME SOD 1 GM/NS 50ML 50 ML IV SCH (01:35)
--- NOTE | 2018-09-04 05:10 | NUR ---
patient medicated with norco 10/325 mg po for c/o right leg/knee pain / at this time. sitter remains at the bedside.
[2018-09-04] MEDS: METRONIDAZOLE 500MG/NS 100ML 100 ML IV SCH ×2 (05:11→14:34)
--- NOTE | 2018-09-04 07:28 | NUR ---
PATIENT IN BED RESTING WITH EYES CLOSED, NO RESPIRATORY DISTRESS. ASSISTED WITH DIAPER CHANGE. O2 IN PLACE VIA N/C. BED IN LOWER POSITION, CALL LIGHT AT REACH.
[2018-09-04] MEDS: IPRATROPIUM BROMIDE 0.02% 2.5 ML NEB NEB SCH ×2 (07:40→11:30)
[2018-09-04] MEDS: LACTATED RINGER'S 1,000 ML IV SCH ×2 (08:00→23:00)
[2018-09-04] MEDS: GABAPENTIN 300 MG CAP PO SCH (09:32)
[2018-09-04] MEDS: ZINC OXIDE / BALSAM PERU 30 GM TUBE TOP SCH (09:32)
[2018-09-04] MEDS: HEPARIN SOD (PORCINE) 5,000 UNIT/ML VIAL SC SCH ×2 (09:36→21:00)
--- NOTE | 2018-09-04 11:55 | NUR ---
PATIENT C/O DAE, MD NOTIFIED, NEW ORDERS RECEIVED.
[2018-09-04] MEDS ORDERED: LORAZEPAM 0.5 MG TAB PO PRN (12:00)
[2018-09-04] MEDS: SERTRALINE HCL 50 MG TAB PO SCH (13:10)
--- NOTE | 2018-09-04 13:35 | NUR ---
Nutrition Intervention Note RD Recommendation(s) for Physician: -Rec to liberalize diet to regular to promote PO intake -Rec Ensure Enlive BID to promote protein-calorie intake -Rec MVi w/mineral and vitamin C 500mg BID to support wound healing Plan of Care: RD following, monitoring for tolerance and adequacy, ONS rec Nutrition reason for involvement: Stage II pressure ulcer RD Assessment 09/04 - Chart reviewed. 88yo F, who was admitted for dyspnea and cough. CT chest showed PNA. MBS showed no risk of aspiration. Visited pt in the room. Per daughter, pt was eating/ drinking well until this hospital admission. For the past couple days, pt was not eating much. Appetite has declined. Pt also complained of nausea and vomiting today. Per daughter, pt didnt have any chewing or swallowing difficulty. Pt was able to tolerate thin liquids well. RD communicated rec above with daughter; she was agreeable with plan. Family will continue to assist and encourage feeding on bedside. Will continue to monitor and follow. Principal Problems/Diagnoses: 1. Hypoxemia. 2. Aspiration pneumonia. 3. Deconditioning. 4. Moderate protein-calorie malnutrition. 5. Atrial fibrillation. PMH: breast cancer GI: abdomen soft, flat, non-tender, brown soft stool 09/03 Skin: Sacral-Right: Stage II Pressure Ulcer Labs: (09/04) BUN <5 L, Creatinine 0.49 L, Ca 8.3 L, AST 49 H Meds: heparin, lactated ringer Ht: 56in Wt: 109lb BMI: 24.4kg/m2 IBW: 80lb Malnutrition Evaluation (09/04) The patient does not meet criteria for a specified degree of malnutrition at this time. Will re-evaluate at follow-up as appropriate. Energy intake: <75% of estimated energy requirements for >7 days Weight loss: Unknown Fat loss: unable to evaluate pt was not feeling well Muscle loss: unable to evaluate pt was not feeling well Supporting Evidence: Fluid accumulation: N/A Functional Status: N/A Nutrition Prescription (Diet Order): cardiac diet Estimated Nutritional Needs: Calories: 1225 1715kcal (25-35kcal/kg/d) Weight used: current BW Protein: 49 74g (1-1.5g/kg/d) Weight used: current BW Diet Adequacy: Not meeting calorie needs, Not meeting protein needs Diet Education Needs Assessment: Diet education not indicated; patient on regular diet. Nutrition Care Level: mod Nutrition Diagnosis: Inadequate oral intake related to PNA as evidenced by pt reported poor appetite. Goal: Patient will meet 75-100% of estimated needs by follow up Progress: N/A Interventions: General healthful diet, Commercial beverage, Multivitamin/mineral supplement therapy Monitoring/Evaluation: Total energy intake, Total protein intake, diet, Liquid supplement, Weight change Signed: Aracely Marquez MS, RD, LD
--- NOTE | 2018-09-04 14:30 | NUR ---
MET W DR. LOPEZ AND BEDSIDE NURSE. DR. LOPEZ STATES THE PT IS DOING BETTER AND WANTED THE O2 ORDERED. MET W THE PT AND HER DTR AT THE BEDSIDE. CHOICE WAS PROVIDED. CHOICE LETTER SIGNED AND COPY TO PT AND COPY TO CHART. REFERRAL WAS FAXED TO [facility] @ OFF: [phone] / FAX: [phone].
[2018-09-04] MEDS: DILTIAZEM HCL 30 MG TAB PO SCH ×2 (15:00→22:00)
--- NOTE | 2018-09-04 17:05 | NUR ---
PATIENT ASSISTED WITH DIAPER CHANGE. ALLEVYN PAD APPLIED TO SACRUM, HEEL PROTECTORS IN PLACE. REPOSITIONED IN BED. BED IN LOWER POSITION, CALL LIGHT AT REACH.
--- NOTE | 2018-09-04 19:00 | NUR ---
patient received awake, alert, lying quietly in bed. hob up 40 degrees. respirations even and unlabored. no c/o pain noted. ivf continue to infuse without difficulty. pm assessment complete. patient/family instructed to call for assistance when needed.
--- NOTE | 2018-09-04 22:00 | NUR ---
patient medicated with norco 10/325 mg po for c/o right leg/knee pain 10/29 at this time. attempted to turn patient at this time but patient refuses. sitter remains at the bedside. sitter also encouraged patient to turn but patient continues to refuse. pt states, " I don't want to turn right now. I just want to relax. "
[2018-09-05] VITALS: BP 143/85
--- NOTE | 2018-09-05 03:30 | NUR ---
telemetry d/c'd at this time per orders.
[2018-09-05 04:00] VITALS: BP 137/87
[2018-09-05] MEDS: DILTIAZEM HCL 30 MG TAB PO SCH ×2 (06:00→12:44)
[2018-09-05 07:58] VITALS: BP 135/70
[2018-09-05] MEDS: GABAPENTIN 300 MG CAP PO SCH (09:18)
[2018-09-05] MEDS: HYDROCODONE/APAP 10MG-325MG TAB PO PRN (09:18)
[2018-09-05] MEDS: ZINC OXIDE / BALSAM PERU 30 GM TUBE TOP SCH (09:18)
[2018-09-05] MEDS: HEPARIN SOD (PORCINE) 5,000 UNIT/ML VIAL SC SCH (09:18)
[2018-09-05] MEDS: SERTRALINE HCL 50 MG TAB PO SCH (09:18)
[2018-09-05 09:30] VITALS: BP 135/70
--- NOTE | 2018-09-05 09:30 | NUR ---
Pt received resting in bed with caregiver at bedside. Alert and oriented x2-3, pleasantly confused. Pt Oriented to staff and surroundings, advised to press call oshea if help needed. Emotional support given. All meds given as ordered. Will monitor
[2018-09-05 12:00] VITALS: BP 157/74
--- NOTE | 2018-09-05 12:20 | Diagnostic Imaging Report ---
Exam: Abdominal film Clinical History: Constipation Comparison: CT chest with contrast 09/01/2018, CT abdomen and pelvis with contrast 08/28/2018 DISCUSSION: Bowel gas pattern shows no dilated, air-filled loops of bowel. Fecal material mixed with ingested contrast from modified barium swallow 08/29/2018 opacifies the rectum. No mass effect or organomegaly. Vertebroplasty cement within L2. Compression deformities of L1-L3 as well as T11. Total right hip replacement. Posttraumatic deformity of the left superior and inferior pubic ramus. IMPRESSION: Nonobstructive bowel gas pattern. Signed by: Dr. Bob Mancilla M.D. on 09/05/2018 12:17 PM
[2018-09-05] MEDS: LACTATED RINGER'S 1,000 ML IV SCH (12:43)
--- NOTE | 2018-09-05 14:05 | NUR ---
HOME HEALTH DISCHARGE NOTE PATIENT ADDRESS WHERE SERVICE WILL BE RECEIVED: [address] [place] [address], [id number] PATIENT CONTACT NUMBER: [phone] NAME OF HOME HEALTH COMPANY: [facility] TELEPHONE/FAX NUMBER OF COMPANY: / FAX [phone] ADDRESS OF COMPANY: [address] [place] [address] [id number], [place] [address] SERVICES TO RECEIVE: SENIOR LIVING AND PHYSICAL THERAPY ANTICIPATED DATE SERVICES WILL BEGIN: 09/06/2018 [place] [facility] [place] [employer] TELEPHONE/FAX NUMBER OF COMPANY: / FAX [phone] ADDRESS OF COMPANY: [address], [place] [address] SERVICES TO RECEIVE: HOME OXYGEN ANTICIPATED DATE SERVICES WILL BEGIN: 09/05/2018 Please call the company above if you have not received a call to schedule a home visit within 24 hours of discharge.
[2018-09-05 16:00] VITALS: BP 121/65
--- NOTE | 2018-09-05 16:10 | NUR ---
Pt's daughter given discharge instructions regarding meds, diet, activities, and follow up appointment. She verbalized understanding of teaching. Leaving in wheelchair to private car
[2018-09-05] MEDS ORDERED: GABAPENTIN 300 MG CAP PO SCH (17:00)
--- NOTE | 2018-09-06 04:53 | Discharge Summary ---
PRIMARY CARE DOCTOR: Dr. Tha Hernandez. FINAL DIAGNOSIS: Sepsis present on admission, likely due to viral pneumonia. SECONDARY DIAGNOSES: 1. Possible mild acute respiratory distress syndrome. 2. Paroxysmal atrial fibrillation. 3. Debility. 4. Breast cancer. 5. Sciatica. 6. Old stroke. CONSULTANTS: 1. Dr. Mehta, Infectious Disease. 2. Dr. Romero, technology risk intern. 3. Dr. Dao, Cardiology. PROCEDURES/STUDIES PERFORMED: 1. Modified barium swallow study. 2. Chest CT. 3. Abdominal CT. HISTORY: Per H and P. HOSPITAL COURSE: The patient was admitted initially with typical antibiotic was started for possible community acquired pneumonia, however, on CT there is some questionable bronchiectasis, therefore antibiotic was changed to ceftazidime. At one time, her oxygen requirement was pretty high. She was needing 7 L of nasal cannula high flow oxygen, that lasted for at least couple of days, finally now this is getting better. Currently, the patient is down to 2 L nasal cannula oxygen. The patient will go home on home oxygen. The patient completed a course of IV antibiotics. The patient does have 24/7 caregiver at home. Home health has been arranged as well. Today, finally the patient was able to walk out to the hallway for the very first time. At this time, it is more beneficial for her to recover at home instead of being in the hospital. I have spoken to the daughter, Milli, and she agrees. I have updated her PCP as well. The patient was seen and examined today. It took 33 minutes total to discharge this patient. CONDITION ON DISCHARGE: Improved. DISCHARGE MEDICATIONS: Please see medication reconciliation form. MD EVARISTO Awad/EUGENIA /[id number] cc: [facility]
== END 2018-09-05 16:37 | disposition home health service (06) | DRG 871 ==
LOC: ER 19:07 → ERHOLD 22:49 → MED/SURG3 23:57 → INTOOBSV 08-26 09:32 → OBSVTOIN 08-26 09:32
PROVIDERS: ADMIT Internal Medicine; ATTEND Internal Medicine
DX: A41.9 Sepsis, unspecified organism (principal); J12.3 Human metapneumovirus pneumonia; J80 Acute respiratory distress syndrome; J47.1 Bronchiectasis with (acute) exacerbation; E44.0 Moderate protein-calorie malnutrition; Z85.3 Personal history of malignant neoplasm of breast; Z87.891 Personal history of nicotine dependence; Z82.49 Family history of ischemic heart disease and other diseases of the circulatory system; E87.6 Hypokalemia; Z86.73 Personal history of transient ischemic attack (TIA), and cerebral infarction without residual deficits; M54.30 Sciatica, unspecified side; I48.0 Paroxysmal atrial fibrillation; R53.81 Other malaise; J02.0 Streptococcal pharyngitis; Z68.24 Body mass index [BMI] 24.0-24.9, adult; R11.10 Vomiting, unspecified; F41.9 Anxiety disorder, unspecified; D64.9 Anemia, unspecified; R62.7 Adult failure to thrive; E83.42 Hypomagnesemia
CPT/HCPCS: 31720; 36415; 71045; 71250; 71260; 74018; 74177; 74230; 80048; 80053; 80076; 81001; 82550; 82553; 83518; 83605; 83690; 83735; 84132; 84443; 84484; 85025; 87040; 87070; 87086; 87400; 87633; 93005; 93306; 94640; 96365; 97139; 99284; G0378; J0456; J0696; J0713; J1644; J1940; J2405; J3475; J3480; J7030; J7121; Q9967

== ENCOUNTER 2019-08-18 12:04 | Emergency (ER) | payer MEDICARE ==
[~2019-08-18] VITALS: Ht 142.2 cm; Wt 49.4 kg
[2019-08-18] MEDS ORDERED: LIDOCAINE 1% W/EPINEPHRINE 20 ML VIAL ONE (12:44)
[2019-08-18] MEDS ORDERED: BACITRACIN ZINC 0.9GM TP ONE (12:45)
[2019-08-18] MEDS ORDERED: NEOMYCIN/POLYMYX/BACITR OINT 0.9 GM PKT TOP ONE (12:45)
[2019-08-18] MEDS ORDERED: LIDOCAINE HCL 1% LOCAL INJ 20 ML VIAL INJ ONE (13:00)
[2019-08-18 13:04] VITALS: BP 110/75
--- NOTE | 2019-08-18 13:07 | NUR ---
laceration repair done by ginger butcher
--- NOTE | 2019-08-18 13:51 | Diagnostic Imaging Report ---
SHOULDER LEFT COMPLETE, HUMERUS LEFT 2+VIEWS HISTORY: Pain. Fall. COMPARISON: None available. FINDINGS: Bones: Subtle lucency through the distal portion of the acromion fracture. Osseous alignment is within normal limits. Joints: Mild degenerative changes of the AC and glenohumeral joints. Soft tissues: Multiple surgical clips projected on the lower left hemithorax. IMPRESSION: Subtle lucency through the distal portion of the acromion fracture. Otherwise no acute radiographic abnormality. Signed by: Dr. Wil Thacker M.D. on 08/18/2019 1:47 PM
--- NOTE | 2019-08-18 13:51 | Diagnostic Imaging Report ---
Examination: CT head without contrast Clinical Indication: Fall with head injury. Technique: Transaxial noncontrast images from the skull base through the vertex were obtained. Sagittal and coronal reformatted images were done. Dose modulation, iterative reconstruction, and/or weight based adjustment of the mA/kV was utilized to reduce the radiation dose to as low as reasonably achievable. Comparison: Head CT performed March 12, 2018. Findings: Scalp: No abnormalities. Bones: Intact. No fractures. No blastic or lytic lesions. Brain sulci: Generalized volume of for patient's age. Ventricles: No hydrocephalus. Extra-axial space: There is new acute subarachnoid hemorrhage in the superior and inferior sulci of the left frontal lobe. Parenchyma: There are mild confluent areas of low-attenuation within subcortical and periventricular white matter, nonspecific, but could represent microvascular ischemic disease. No masses, hemorrhage, or acute or chronic cortical based vascular insults. Suprasellar region: No abnormalities. Craniocervical junction: The foramen magnum is patent. No Chiari one malformation. Incidental findings: Atherosclerotic calcification of the supraclinoid internal carotid arteries. Impression: 1. New acute subarachnoid hemorrhage on the left frontal sulci when compared to prior head CT from March 12, 2018. 2. Unchanged chronic microvascular ischemic change and volume loss. Dr. Jocelyn Adamson discussed findings and recommendations with Dr. Ladd on 08/18/2019 at 1345 hours. Signed by: Dr. Jocelyn Adamson M.D. on 08/18/2019 1:47 PM
--- NOTE | 2019-08-18 13:52 | Diagnostic Imaging Report ---
Examination: CT CERVICAL SPINE WO CONTRAST HISTORY:Neck injury and pain after fall. COMPARISON:None. TECHNIQUE: Multidetector helical axial images were obtained without contrast from the foramen magnum to T1. Coronal and sagittal reformatted images were done. Bone and soft tissue windows were evaluated. Dose modulation, iterative reconstruction, and/or weight based adjustment of the mA/kV was utilized to reduce the radiation dose to as low as reasonably achievable. FINDINGS: Alignment:Normal alignment and lordosis. Vertebrae: Normal height and density. No acute fracture, infection or neoplasm. Disc space heights: Severe height loss from C4-T1. Caliber of spinal canal: Developmentally normal. Posterior fossa and craniocervical junction: Foramen magnum patent. No Chiari 1 malformation. Soft tissues: Atherosclerotic calcification of the bilateral carotid bifurcations. Degenerative changes: Diffuse disc osteophyte complexes at C4-C5 and C5-C6 without canal stenosis. Visualized lung apices: No abnormalities. IMPRESSION: 1. No acute abnormalities. 2. Degenerative change as above. Signed by: Dr. Jocelyn Adamson M.D. on 08/18/2019 1:49 PM
--- NOTE | 2019-08-18 14:06 | Diagnostic Imaging Report ---
EXAMINATION: Chest AP view INDICATION: Fall. Pain. COMPARISON: 08/30/2018. FINDINGS: TUBES and LINES: None. LUNGS: Lungs are well inflated. Lungs are clear. There is no evidence of pneumonia or pulmonary edema. PLEURA: No pleural effusion or pneumothorax. HEART AND MEDIASTINUM: The cardiomediastinal silhouette is unremarkable. BONES AND SOFT TISSUES: No acute osseous lesion. Surgical clips projected on the left lower hemithorax. L2 vertebroplasty again observed. Remote fracture of the right clavicle. UPPER ABDOMEN: No free air under the diaphragm. IMPRESSION: No acute thoracic abnormality. Signed by: Dr. Wil Thacker M.D. on 08/18/2019 2:03 PM
[2019-08-18 14:13] LABS: BASOPHILS % 0.3 % (0.0-1.0); EOSINOPHILS # (AUTO) 0.3 (0.0-0.4); EOSINOPHILS % 2.5 % (0.0-6.0); HEMATOCRIT 39.7 % (34.2-44.1); HEMOGLOBIN 13.1 g/dL (12.0-16.0); LYMPHOCYTES # (AUTO) 4.8 (1.0-3.2); LYMPHOCYTES % 46.2 % (18.0-39.1); MEAN CORPUSCULAR HEMOGLOBIN 32.9 pg (28-32); MEAN CORPUSCULAR VOLUME 99.7 fL (81-99); MONOCYTES # (AUTO) 0.5 (0.2-0.8); MONOCYTES % 4.4 % (4.4-11.3); NEUTROPHILS # (AUTO) 4.9 (2.1-6.9); NEUTROPHILS % 46.2 % (38.7-80.0); PLATELET COUNT 204 x10e3/uL (140-360); RED BLOOD COUNT 3.98 x10e6/uL (3.6-5.1); RED CELL DISTRIBUTION WIDTH 14.4 % (11.7-14.4)
[2019-08-18 14:17] LABS: INR 0.86; PROTHROMBIN TIME 12.2 seconds (11.9-14.5)
[2019-08-18 14:18] LABS: PARTIAL THROMBOPLASTIN TIME 24.4 seconds (23.8-35.5)
[2019-08-18 14:31] LABS: ALANINE AMINOTRANSFERASE 20 IU/L (0-55); ALBUMIN 3.9 g/dL (3.5-5.0); ALBUMIN/GLOBULIN RATIO 1.2 (0.8-2.0); ALKALINE PHOSPHATASE 67 IU/L (40-150); BLOOD UREA NITROGEN 23 mg/dL (7-26); BUN/CREATININE RATIO 26 (6-25); CALCIUM 10.1 mg/dL (8.4-10.2); CARBON DIOXIDE 31 mmol/L (22-29); CHLORIDE 101 mmol/L (98-107); CREATINE KINASE 20 IU/L (29-168); CREATININE, SERUM 0.87 mg/dL (0.57-1.11); EST GLOMERULAR FILTRATION RATE > 60 ML/MIN (60-); GLUCOSE 96 mg/dL (74-118); MAGNESIUM 2.1 MG/DL (1.3-2.1); SODIUM 141 mmol/L (136-145)
--- NOTE | 2019-08-18 14:38 | NUR ---
[place] [facility] [place]
--- NOTE | 2019-08-18 14:39 | NUR ---
[facility]
--- NOTE | 2019-08-18 14:41 | NUR ---
ems eta 45 min at 1441
== END 2019-08-18 16:08 | disposition short-term general hospital (02) ==
LOC: ER 12:04
DX: S06.6X9A Traumatic subarachnoid hemorrhage with loss of consciousness of unspecified duration, initial encounter (principal); S42.495A Other nondisplaced fracture of lower end of left humerus, initial encounter for closed fracture; S01.81XA Laceration without foreign body of other part of head, initial encounter; W01.0XXA Fall on same level from slipping, tripping and stumbling without subsequent striking against object, initial encounter; Y93.89 Activity, other specified; Y92.019 Unspecified place in single-family (private) house as the place of occurrence of the external cause; M25.512 Pain in left shoulder; S01.112A Laceration without foreign body of left eyelid and periocular area, initial encounter
CPT/HCPCS: 36415; 70450; 71045; 72125; 80053; 82550; 82553; 83735; 84484; 85025; 85610; 85730; 93005; 99285

== ENCOUNTER 2020-02-13 21:16 | Emergency (ER) | payer MEDICARE ==
[~2020-02-13] VITALS: Ht 142.2 cm; Wt 49.4 kg
[2020-02-13] MEDS ORDERED: SODIUM CHLORIDE 0.9% 1000ML 1,000 ML IV STA (21:22)
--- NOTE | 2020-02-13 21:26 | Emergency Department Note ---
History of Present Illnes History of Present Illness History of Present Illness This is a 89 year old female brought by EMS for evaluation of syncopal episode after she was found altered on the commode. Patient found by caregiver . Seen upon arrival by transport, patient without complaints . Commercial Portfolio Manager Required: No Onset (how long ago): minute(s) Radiation: Reports non-radiation Severity: mild Onset quality: sudden Duration (how long): hour(s) Timing of current episode: constant Progression: resolved Chronicity: recurrent Context: Denies recent illness, Denies recent surgery, Denies recent immobilization, Denies recent travel, Denies trauma/injury, Denies new medications, Denies hx of DVT/PE, Denies non-compliance w/ medications, Denies other Relieving factors: none Exacerbating factors: none Associated symptoms: Denies denies other symptoms, Denies confusion, Denies chest pain, Denies cough, Denies diaphoresis, Denies fever/chills, Denies headaches, Denies loss of appetite, Denies malaise, Denies nausea/vomiting, Denies rash, Denies seizure, Denies shortness of breath, Denies syncope, Denies weakness, Denies other Past Medical/Family History Physician Review I have reviewed the patient's past medical and family history. Any updates have been documented here. Past Medical History Recent Fever: No Clinical Suspicion of Infectio: No New/Unexplained Change in Ment: Yes Past Medical History: Hypertension, COPD, CHF, CVA, Cancer, Anxiety, Depression, Hyperlipedemia, Chronic Back Pain Other Medical History: DEPRESSION BREAST CANCER LEFT CLAVICLE HIP FRACTURE PELVIC FRACTURE 6 VERTEBRAE FACTURES SCIATIC NERVE PAIN Past Surgical History: Lumpectomy, Back Surgery, Cataract Removal Other Surgery: BACK SURGERY Rt hip sx Left LUMPECTOMY BILAT VEIN SURGERY IN LEGS Social History Smoking Cessation: Never Smoker Alcohol Use: None Any Illegal Drug Use: No Other Last Tetanus: UTD Review of Systems Review of Systems Constitutional: Reports no symptoms EENTM: Reports no symptoms Cardiovascular: Reports syncope Respiratory: Reports no symptoms Gastrointestinal: Reports no symptoms Genitourinary: Reports no symptoms Musculoskeletal: Reports no symptoms Integumentary: Reports no symptoms Neurological: Reports no symptoms Psychological: Reports no symptoms Endocrine: Reports no symptoms Hematological/Lymphatic: Reports no symptoms Physical Exam Related Data Allergies: Coded Allergies: No Known Allergies (Unverified , 03/12/18) Triage Vital Signs Vital Signs Date Time Temp Pulse Resp B/P (MAP) Pulse Ox O2 Delivery O2 Flow Rate FiO2 02/13/20 21:31 97.7 100 17 125/62 96 Room Air Vital signs reviewed: Yes Physical Exam CONSTITUTIONAL Constitutional: Present well-developed, Present well-nourished HENT HENT: Present normocephalic, Present atraumatic, Present oropharynx clear/moist, Present nose normal HENT L/R: Present left ext ear normal, Present right ext ear normal EYES Eyes: Reports PERRL, Reports conjunctivae normal NECK Neck: Present ROM normal PULMONARY Pulmonary: Present effort normal, Present breath sounds normal CARDIOVASCULAR Cardiovascular: Present regular rhythm, Present heart sounds normal, Present capillary refill normal, Present normal rate GASTROINTESTINAL Abdominal: Present soft, Present nontender, Present bowel sounds normal GENITOURINARY Genitourinary: Present exam deferred SKIN Skin: Present warm, Present dry MUSCULOSKELETAL Musculoskeletal: Present ROM normal NEUROLOGICAL Neurological: Present alert, Present oriented x 3, Present no gross motor or sensory deficits PSYCHOLOGICAL Psychological: Present mood/affect normal, Present judgement normal Results Laboratory Lab results reviewed: Yes Laboratory comments Laboratory Tests Test 02/13/20 21:30 White Blood Count 10.40 x10e3/uL (4.8-10.8) Red Blood Count 4.07 x10e6/uL (3.6-5.1) Hemoglobin 13.1 g/dL (12.0-16.0) Hematocrit 39.8 % (34.2-44.1) Mean Corpuscular Volume 97.8 fL (81-99) Mean Corpuscular Hemoglobin 32.2 pg (28-32) Mean Corpuscular Hemoglobin Concent 32.9 g/dL (31-35) Red Cell Distribution Width 14.6 % (11.7-14.4) Platelet Count 232 x10e3/uL (140-360) Neutrophils (%) (Auto) 31.6 % (38.7-80.0) Lymphocytes (%) (Auto) 60.9 % (18.0-39.1) Monocytes (%) (Auto) 5.2 % (4.4-11.3) Eosinophils (%) (Auto) 1.5 % (0.0-6.0) Basophils (%) (Auto) 0.5 % (0.0-1.0) Neutrophils # (Auto) 3.3 (2.1-6.9) Lymphocytes # (Auto) 6.3 (1.0-3.2) Monocytes # (Auto) 0.5 (0.2-0.8) Eosinophils # (Auto) 0.2 (0.0-0.4) Basophils # (Auto) 0.1 (0.0-0.1) Absolute Immature Granulocyte (auto 0.03 x10e3/uL (0-0.1) Differential Total Cells Counted 100 Neutrophils % (Manual) 36 % (40-74) Lymphocytes % (Manual) 55 % (19-48) Monocytes % (Manual) 6 % (3.4-9.0) Reactive Lymphocytes 3 Smudge Cells Few Platelet Estimate Adequate Platelet Morphology Comment Normal Red Cell Morphology Comment Normal Sodium Level 139 mmol/L (136-145) Potassium Level 3.8 mmol/L (3.5-5.1) Chloride Level 99 mmol/L (98-107) Carbon Dioxide Level 27 mmol/L (22-29) Anion Gap 16.8 mmol/L (8-16) Blood Urea Nitrogen 18 mg/dL (7-26) Creatinine 0.96 mg/dL (0.57-1.11) Estimat Glomerular Filtration Rate 55 ML/MIN (60-) BUN/Creatinine Ratio 19 (6-25) Glucose Level 110 mg/dL (74-118) Calcium Level 9.8 mg/dL (8.4-10.2) Total Bilirubin 0.5 mg/dL (0.2-1.2) Aspartate Amino Transf (AST/SGOT) 27 IU/L (5-34) Alanine Aminotransferase (ALT/SGPT) 21 IU/L (0-55) Alkaline Phosphatase 71 IU/L (40-150) Creatine Kinase 15 IU/L (29-168) Creatine Kinase MB < 1.00 ng/mL (0-4.3) Troponin I < 0.05 ng/mL (0.0-0.40) B-Type Natriuretic Peptide 15.5 pg/mL (0-100) Total Protein 7.5 g/dL (6.5-8.1) Albumin 4.5 g/dL (3.5-5.0) Globulin 3.0 g/dL (2.3-3.5) Albumin/Globulin Ratio 1.5 (0.8-2.0) Imaging Imaging results reviewed: Yes Impressions [facility] [address] [address] Patient Name: JAYY LAYNE MR #: [id number] : 1930 Age/Sex: 89/F Req #: [id number] Adm Physician: Ordered by: ANA PALMA DO Report #: [id number] Location: ER Room/Bed: Procedure: [id number] CT/CT BRAIN WO Exam Date: 02/13/20 Exam Time: 2157 REPORT STATUS: Signed EXAMINATION: Head CT without contrast. HISTORY:Syncope. COMPARISON:CT brain from 08/18/2019. TECHNIQUE: Multidetector axial images were obtained from the foramen magnum to the vertex without contrast. The images were reconstructed using brain and bone algorithms. Thin section brain images were reformatted into coronal and sagittal planes. Dose modulation, iterative reconstruction, and/or weight based adjustment of the mA/kV was utilized to reduce the radiation dose to as low as reasonably achievable. Intravenous contrast: None IMAGE QUALITY: Acceptable. FINDINGS: Skull/scalp: No lytic or blastic. lesions. No surgical changes. Parenchyma: Nonspecific supratentorial white matter patchy hypodensity are likely related to small vessel ischemic changes. Unchanged subtle increased density in the right lentiform nucleus with mildly prominent vessels possibly represents developmental venous anomaly with or without associated cavernoma. No acute hemorrhage, mass or acute major vascular territorial infarct. Arteries: No density suggestive of thrombosis. Dural sinuses: No abnormal density suggestive of thrombosis. Ventricles: Moderate compensated dilatation due to volume loss. No acute hydrocephalus. Extra-axial spaces: No abnormal density. Interval resolution of left anterior frontal subarachnoid hemorrhage which was seen in prior CT from 08/18/2019. Brain volume: Generalized age-related cerebral volume loss. Craniocervical junction: No mass, Chiari malformation, or basilar invagination. Sella: No mass. Paranasal/mastoid sinuses: Imaged portions unremarkable. IMPRESSION: No acute intracranial abnormality. Interval resolution of left anterior frontal subarachnoid hemorrhage. Otherwise no change since CT brain from 08/18/2019. Chronic findings: 1. Generalized age-related cerebral volume loss. 2. Mild supratentorial white matter microvascular ischemic changes. 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 Signed by: Dr. Jacy Escalera M.D. on 02/13/2020 10:24 PM Dictated By: JACY ESCALERA MD 23 Transcribed By: VALENTINE on 02/13/202223 COPY TO: ANA PALMA DO~ [address] [place] [address] Patient Name: JAYY LAYNE MR #: [id number] : 1930 Age/Sex: 89/F Req #: [id number] Adm Physician: Ordered by: ANA PALMA DO Report #: [id number] Location: ER Room/Bed: Procedure: [id number] DX/CHEST SINGLE (PORTABLE) Exam Date: 02/13/20 Exam Time: 2156 REPORT STATUS: Signed EXAMINATION: CHEST SINGLE (PORTABLE) INDICATION: ^ORDER PLACED BY ^[id number] ^2156 ^Y COMPARISON: 08/18/2019 FINDINGS: AP view TUBES and LINES: None. LUNGS: Lungs are well inflated. There is no evidence of pneumonia or pulmonary edema. Again seen surgical clips projecting over left lower lung field. PLEURA: No pleural effusion or pneumothorax. HEART AND MEDIASTINUM: The cardiomediastinal silhouette is unremarkable. BONES AND SOFT TISSUES: Generalized demineralization. L2 vertebroplasty is again seen. Chronic right clavicular fracture deformity. No acute osseous lesion. Soft tissues are unremarkable. UPPER ABDOMEN: No free air under the diaphragm. IMPRESSION: No acute thoracic abnormality. Signed by: Dr. Mustapha Parson MD on 02/13/2020 10:35 PM Dictated By: MUSTAPHA PARSON MD 34 Transcribed By: VALENTINE on 02/13/202234 COPY TO: ANA PALMA DO~ Procedures 12 Lead ECG Interpretation ECG Interpretation : ECG: ECG 1 Commercial Portfolio Manager: Interpreted by ED physician Date: Feb 13, 2020 Time: 21:37 Prior ECG tracings: reviewed Rhythm: sinus rhythm Rate: normal BPM: 95 Conduction: incomplete RBBB ST segments normal: Yes T waves normal: Yes Other findings: LVH Assessment & Plan Medical Decision Making MDM Diff Dx : CVA, ACS, UTI, arrhythmia, abl electrolytes,sepsis Assessment & Plan Final Impression: (1) Syncope, vasovagal Depart Disposition: HOME, SELF-halfway Meds Active Scripts Lorazepam (ATIVAN) 1 Mg Tablet, 0.5 MG PO Q6HWA PRN for ANXIETY, #60 Prov:IRVIN WYATT 03/31/16 Reported Medications Furosemide (LASIX) 20 Mg Tablet, 20 MG PO DAILY, #30 TAB 10/17/17 Metoprolol Tartrate (METOPROLOL TARTRATE) 25 Mg Tablet, 12.5 MG PO BID, TAB 10/17/17 Gabapentin (GABAPENTIN) 300 Mg Capsule, 600 MG PO BID, #60 CAP 10/17/17 Hydrocodone Bit/Acetaminophen (NORCO 10-325 TABLET) 1 Each Tablet, 1 TAB PO Q4HR PRN for PAIN 03/28/16 Sertraline Hcl (SERTRALINE HCL) 25 Mg Tablet, 50 MG PO DAILY 04/09/14 Medications in the ED Sodium Chloride 1,000 ml @ 0 mls/hr Q0M STAT IV ; Start 02/13/20 at 21:22; Stop 02/13/20 at 21:23; Status DC ANA PALMA DO Feb 13, 2020 21:26
[2020-02-13 21:38] LABS: BASOPHILS # (AUTO) 0.1 (0.0-0.1); BASOPHILS % 0.5 % (0.0-1.0); EOSINOPHILS # (AUTO) 0.2 (0.0-0.4); EOSINOPHILS % 1.5 % (0.0-6.0); HEMATOCRIT 39.8 % (34.2-44.1); HEMOGLOBIN 13.1 g/dL (12.0-16.0); LYMPHOCYTES # (AUTO) 6.3 (1.0-3.2); LYMPHOCYTES % 60.9 % (18.0-39.1); MEAN CORPUSCULAR HEMOGLOBIN 32.2 pg (28-32); MEAN CORPUSCULAR HGB CONC 32.9 g/dL (31-35); MEAN CORPUSCULAR VOLUME 97.8 fL (81-99); MONOCYTES # (AUTO) 0.5 (0.2-0.8); MONOCYTES % 5.2 % (4.4-11.3); NEUTROPHILS # (AUTO) 3.3 (2.1-6.9); NEUTROPHILS % 31.6 % (38.7-80.0); PLATELET COUNT 232 x10e3/uL (140-360); RED BLOOD COUNT 4.07 x10e6/uL (3.6-5.1); RED CELL DISTRIBUTION WIDTH 14.6 % (11.7-14.4)
[2020-02-13 21:58] LABS: ALANINE AMINOTRANSFERASE 21 IU/L (0-55); ALBUMIN 4.5 g/dL (3.5-5.0); ALBUMIN/GLOBULIN RATIO 1.5 (0.8-2.0); ALKALINE PHOSPHATASE 71 IU/L (40-150); ANION GAP 16.8 mmol/L (8-16); BLOOD UREA NITROGEN 18 mg/dL (7-26); BUN/CREATININE RATIO 19 (6-25); CALCIUM 9.8 mg/dL (8.4-10.2); CARBON DIOXIDE 27 mmol/L (22-29); CHLORIDE 99 mmol/L (98-107); CREATINE KINASE 15 IU/L (29-168); CREATINE KINASE MB < 1.00 ng/mL (0-4.3); CREATININE, SERUM 0.96 mg/dL (0.57-1.11); EST GLOMERULAR FILTRATION RATE 55 ML/MIN (60-); GLUCOSE 110 mg/dL (74-118); POTASSIUM 3.8 mmol/L (3.5-5.1); SODIUM 139 mmol/L (136-145)
[2020-02-13 22:16] LABS: LYMPHOCYTES % (MANUAL) 55 % (19-48); MONOCYTES % (MANUAL) 6 % (3.4-9.0); NEUTROPHILS % (MANUAL) 36 % (40-74); PLATELET ESTIMATE ADEQUATE; PLATELET MORPHOLOGY COMMENT NORMAL; RBC MORPHOLOGY COMMENT NORMAL; SMUDGE CELLS FEW
--- NOTE | 2020-02-13 22:27 | Diagnostic Imaging Report ---
EXAMINATION: Head CT without contrast. HISTORY:Syncope. COMPARISON:CT brain from 08/18/2019. TECHNIQUE: Multidetector axial images were obtained from the foramen magnum to the vertex without contrast. The images were reconstructed using brain and bone algorithms. Thin section brain images were reformatted into coronal and sagittal planes. Dose modulation, iterative reconstruction, and/or weight based adjustment of the mA/kV was utilized to reduce the radiation dose to as low as reasonably achievable. Intravenous contrast: None IMAGE QUALITY: Acceptable. FINDINGS: Skull/scalp: No lytic or blastic. lesions. No surgical changes. Parenchyma: Nonspecific supratentorial white matter patchy hypodensity are likely related to small vessel ischemic changes. Unchanged subtle increased density in the right lentiform nucleus with mildly prominent vessels possibly represents developmental venous anomaly with or without associated cavernoma. No acute hemorrhage, mass or acute major vascular territorial infarct. Arteries: No density suggestive of thrombosis. Dural sinuses: No abnormal density suggestive of thrombosis. Ventricles: Moderate compensated dilatation due to volume loss. No acute hydrocephalus. Extra-axial spaces: No abnormal density. Interval resolution of left anterior frontal subarachnoid hemorrhage which was seen in prior CT from 08/18/2019. Brain volume: Generalized age-related cerebral volume loss. Craniocervical junction: No mass, Chiari malformation, or basilar invagination. Sella: No mass. Paranasal/mastoid sinuses: Imaged portions unremarkable. IMPRESSION: No acute intracranial abnormality. Interval resolution of left anterior frontal subarachnoid hemorrhage. Otherwise no change since CT brain from 08/18/2019. Chronic findings: 1. Generalized age-related cerebral volume loss. 2. Mild supratentorial white matter microvascular ischemic changes. 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 Signed by: Dr. Jacy Escalera M.D. on 02/13/2020 10:24 PM
--- NOTE | 2020-02-13 22:38 | Diagnostic Imaging Report ---
EXAMINATION: CHEST SINGLE (PORTABLE) INDICATION: ^ORDER PLACED BY ^[id number] ^2157 ^Y COMPARISON: 08/18/2019 FINDINGS: AP view TUBES and LINES: None. LUNGS: Lungs are well inflated. There is no evidence of pneumonia or pulmonary edema. Again seen surgical clips projecting over left lower lung field. PLEURA: No pleural effusion or pneumothorax. HEART AND MEDIASTINUM: The cardiomediastinal silhouette is unremarkable. BONES AND SOFT TISSUES: Generalized demineralization. L2 vertebroplasty is again seen. Chronic right clavicular fracture deformity. No acute osseous lesion. Soft tissues are unremarkable. UPPER ABDOMEN: No free air under the diaphragm. IMPRESSION: No acute thoracic abnormality. Signed by: Dr. Mustapha Michael MD on 02/13/2020 10:35 PM
--- NOTE | 2020-02-14 00:35 | NUR ---
dr schneider informed of patient not wanting to urinate, no need for straight cath at this moment, patient not showing signs of sepsis. ok to dischage home
[2020-02-14 00:36] VITALS: BP 136/70
== END 2020-02-14 00:37 | disposition home or self-care (01) ==
LOC: ER 21:33
DX: R55 Syncope and collapse (principal); I10 Essential (primary) hypertension; E78.5 Hyperlipidemia, unspecified; J44.9 Chronic obstructive pulmonary disease, unspecified; I50.9 Heart failure, unspecified; F41.9 Anxiety disorder, unspecified; M54.9 Dorsalgia, unspecified; G89.29 Other chronic pain; Z85.3 Personal history of malignant neoplasm of breast
CPT/HCPCS: 70450; 71045; 80053; 82550; 82553; 83880; 84484; 85025; 99284; J7030; 36415; 93005